=== PATIENT | male | born 1960 | race Caucasian/White ===

== ENCOUNTER 2025-05-08 22:27 | Inpatient (IN) | payer MEDICARE, OTHER, SELFPAY ==
[2025-05-08 18:42] VITALS: BP 179/110; BMI 19.8
[2025-05-08 19:33] LABS: Hematocrit 43.1 % (39.0-52.0); Hemoglobin 13.5 g/dL (13.0-18.0); Mean Corp Hgb Conc. 31.3 g/dL (33.0-37.0); Mean Corpuscular Volume 74.8 fL (80.0-94.0); Nucleated Red Blood Cells % 0 % (-); Platelet Count 318 10^3/uL (130-400); Red Cell Dist. Width 18.9 % (11.5-14.5)
[2025-05-08 19:38] LABS: INR 0.98; PT 13.3 Sec (11.4-14.6)
[2025-05-08 19:42] LABS: COVID-19 Antigen Negative (Negative)
[2025-05-08 19:48] LABS: ALT (SGPT) 24 U/L (0-50); AST (SGOT) 28 U/L (17-59); Albumin 4.0 g/dl (3.5-5.0); Alkaline Phosphatase 95 U/L (38-126); Blood Urea Nitrogen 10 mg/dl (9-20); Calcium 9.5 mg/dl (8.4-10.2); Carbon Dioxide 27 mmol/L (22-30); Chloride 105 mmol/L (98-107); Estimated Creatinine Clearance 80 ml/min; Glucose 117 mg/dl (70-99); Potassium 4.2 mmol/L (3.5-5.1); Sodium 141 mmol/L (135-145); Total Protein 6.7 g/dl (6.3-8.2); eGFR > 60.00
[2025-05-08] MEDS: ZITHROMAX 500 MG PO (19:58)
[2025-05-08] MEDS: NSS 1000 IV (20:09)
[2025-05-08] MEDS: DECADRON 10 MG IV (20:10)
--- NOTE | 2025-05-08 20:41 | ED.GENMED ---
History of Present Illness
<Gurdeep Hernandez MD - Last Filed: 05/08/25 20:43>
General
Chief Complaint: Cough
Time Seen by Provider: 05/08/25 19:17
<Roger Pimentel Jr., PA-C - Last Filed: 05/08/25 21:34>
General
Source: patient, ambulance crew and long-term
Exam Limitations: none
Nursing documentation reviewed up to this point in time: agreed with
History of Present Illness
History of Present Illness:
64-year-old male past ministry of COPD hypertension presenting to the emergency department today from nursing facility with concerns of cough shortness of breath dyspnea on exertion fever tachycardia over the past day or so. Typically is on 1 L
oxygen at baseline
Review of Systems
<Roger Pimentel Jr., PA-C - Last Filed: 05/08/25 21:34>
Review of Systems
Allergies reviewed?: Yes
All Other Systems: ROS reviewed and negative except as documented in HPI and ROS
Phy Exam
<Roger Pimentel Jr., PA-C - Last Filed: 05/08/25 21:34>
Physical Exam
Physical Exam:
GENERAL: Alert , in no apparent distress
EYE: pupils equal and reactive
NECK: Supple, no significant adenopathy.
ENT: o/p clr, mmm.
CARDIAC: Regular rate and rhythm .
Pulmonary
: Diffuse inspiratory and expiratory wheezing
ABDOMEN: Soft, without focal tenderness, no r/g, no cvat
NEUROLOGICAL: Alert and oriented, no focal neuro deficits
SKIN: Warm and dry, skin intact.
MUSCULOSKELETAL: No edema, well perfused.
PSYCH: Normal and appropriate interaction.
Course
<Gurdeep Hernandez MD - Last Filed: 05/08/25 20:43>
Orders/Labs/Results
Orders:
Orders
05/08/25 18:50
EKG [Electrocardiogram (*1)] Urgent
Reason for Study: Tachycardia
EKG- Treatment ONCE
05/08/25 19:03
COVID-19 Antigen Urgent
Source: Nasal Swab
Complete Blood Count/With Diff Urgent
Comprehensive Metabolic Panel Urgent
Lactic Acid Urgent
Influenza A+B Rapid Molecular Urgent
MITA Source: Nasal Swab
Specimen Description:
05/08/25 19:11
PT/INR [Prothrombin Time] Urgent
Blood Culture Urgent
MITA Source: Blood/Venous
Specimen Description:
Blood Culture Urgent
MITA Source: Blood/Venous
Specimen Description:
05/08/25 19:16
Chest [CR Chest - 2 Views ] Urgent
Comment:
Reason For Exam: cough fever
05/08/25 19:44
0.9% Sodium Chloride 1000 ml [Nss] 1,000 ml IV BOLUS
Azithromycin [Zithromax] 500 mg PO NOW STA
Dexamethasone Sod Phosphate [Decadron] 10 mg IV NOW STA
05/08/25 20:33
Acetaminophen [Tylenol] 1,000 mg PO NOW STA
CefTRIAXone [Rocephin] 2,000 mg IV NOW STA
Metoclopramide [Reglan] 10 mg IV NOW STA
05/08/25 20:47
Sterile Water [Sterile Water For Injection] 20 ml .ROUTE .STK-MED
Abnormal Lab Results
05/08/25
19:03
MCV 74.8 L fL
(80.0-94.0)
MCH 23.4 L pg
(27.0-31.0)
MCHC 31.3 L g/dL
(33.0-37.0)
RDW 18.9 H %
(11.5-14.5)
Abs Immat Gran (auto) 0.1 H 10^3/uL
(0-0.05)
Absolute Monos (auto) 1.0 H 10^3/uL
(0.1-0.6)
Immature Gran % 1.3 H %
(0-0.5)
Lymphocytes % 15.3 L %
(20.5-51.1)
Monocytes % 13.8 H %
(1.7-9.3)
Glucose 117 H mg/dl
(70-99)
05/08/25 19:03
05/08/25 19:03
Vital Signs
Initial and Last Documented VS:
Initial Vital Signs
Temp Pulse Resp BP Pulse Ox
100.7 F H 136 22 179/110 91
05/08/25 18:42 05/08/25 18:42 05/08/25 18:42 05/08/25 18:42 05/08/25 18:42
Last Documented Vital Signs
Temp Pulse Resp BP Pulse Ox
100.7 F H 117 13 105/82 96
05/08/25 18:42 05/08/25 21:00 05/08/25 21:00 05/08/25 21:00 05/08/25 21:00
<Roger Pimentel Jr., PA-C - Last Filed: 05/08/25 21:34>
Orders/Labs/Results
Orders:
Orders
05/08/25 18:50
EKG [Electrocardiogram (*1)] Urgent
Reason for Study: Tachycardia
EKG- Treatment ONCE
05/08/25 19:03
COVID-19 Antigen Urgent
Source: Nasal Swab
Complete Blood Count/With Diff Urgent
Comprehensive Metabolic Panel Urgent
Lactic Acid Urgent
Influenza A+B Rapid Molecular Urgent
MITA Source: Nasal Swab
Specimen Description:
05/08/25 19:11
PT/INR [Prothrombin Time] Urgent
Blood Culture Urgent
MITA Source: Blood/Venous
Specimen Description:
Blood Culture Urgent
MITA Source: Blood/Venous
Specimen Description:
05/08/25 19:16
Chest [CR Chest - 2 Views ] Urgent
Comment:
Reason For Exam: cough fever
05/08/25 19:44
0.9% Sodium Chloride 1000 ml [Nss] 1,000 ml IV BOLUS
Azithromycin [Zithromax] 500 mg PO NOW STA
Dexamethasone Sod Phosphate [Decadron] 10 mg IV NOW STA
05/08/25 20:33
Acetaminophen [Tylenol] 1,000 mg PO NOW STA
CefTRIAXone [Rocephin] 2,000 mg IV NOW STA
Metoclopramide [Reglan] 10 mg IV NOW STA
05/08/25 20:47
Sterile Water [Sterile Water For Injection] 20 ml .ROUTE .STK-MED
Abnormal Lab Results
05/08/25
19:03
MCV 74.8 L fL
(80.0-94.0)
MCH 23.4 L pg
(27.0-31.0)
MCHC 31.3 L g/dL
(33.0-37.0)
RDW 18.9 H %
(11.5-14.5)
Abs Immat Gran (auto) 0.1 H 10^3/uL
(0-0.05)
Absolute Monos (auto) 1.0 H 10^3/uL
(0.1-0.6)
Immature Gran % 1.3 H %
(0-0.5)
Lymphocytes % 15.3 L %
(20.5-51.1)
Monocytes % 13.8 H %
(1.7-9.3)
Glucose 117 H mg/dl
(70-99)
05/08/25 19:03
05/08/25 19:03
Vital Signs
Initial and Last Documented VS:
Initial Vital Signs
Temp Pulse Resp BP Pulse Ox
100.7 F H 136 22 179/110 91
05/08/25 18:42 05/08/25 18:42 05/08/25 18:42 05/08/25 18:42 05/08/25 18:42
Last Documented Vital Signs
Temp Pulse Resp BP Pulse Ox
100.7 F H 117 13 105/82 96
05/08/25 18:42 05/08/25 21:00 05/08/25 21:00 05/08/25 21:00 05/08/25 21:00
<Roger Pimentel Jr., PA-C - Last Filed: 05/08/25 21:34>
MDM/Problems Addressed
MDM/Problems Addressed:
64-year-old male presenting to the emergency department today with concerns of worsening cough for respiratory syndrome and fever. On arrival low-grade temperature tachycardic. Inspiratory and expiratory wheezing. Chest x-ray showed possible
pneumonia. Patient started on antibiotics otherwise will be admitted for further treatment and monitoring.
<Gurdeep Hernandez MD - Last Filed: 05/08/25 20:43>
*Pulse Oximetry
SaO2: 96
Oxygen Mode of Delivery: Room air
<Roger Pimentel Jr., PA-C - Last Filed: 05/08/25 21:34>
*Pulse Oximetry
Patient hypoxic: no (96)
*Critical Care Note
Total Time (30-74mins, 75-104mins- exclusive of procedures): Not Applicable
ED Attending Note
<Gurdeep Hernandez MD - Last Filed: 05/08/25 20:43>
ED Attending Note
Patient seen and examined by attending physician: Yes
I performed the substantive portion of visit, reviewed & personally made and approve the management plan that is documented in note by myself or ACE.: Yes
ED Attending Note:
Increased cough short of breath fever headache x 2 to 3 days. Feels it started after his flu shot.
Patient presents hypertensive tachycardic. Moderately tachypneic. Low-grade fever.
Some pursed lip breathing but able to speak. Distant breath sounds diffusely. Mild expiratory rhonchi and wheeze mostly with coughing. Gets fairly tachycardic and comfortable when he does cough.
Chest x-ray shows possible pneumonia right upper lobe. Low-grade fever. Was given steroids. Refuses nebulizers. He will do his own his inhalers however. I encouraged him to go ahead and take multiple puffs of his albuterol and his preventative
inhaler. Antibiotics started. Will be admitted to the medical service.
-
Portions of this chart may have been created with voice recognition software.� Occasional wrong word or��sound alike� substitutions may have occurred due to the inherent limitations of voice recognition software.
Discharge Plan
Departure
Patient Disposition: Admit
Date of Disposition: 05/08/25
Time of Disposition: 21:33
Admit to: Med/Surg
Admit to doctor: Bibi
Presentation/result/management discussed w/ accepting MD/DO: Hospitalist
Patient with high blood pressure during this ER visit?: No
Condition: Fair
Covid-19: Not Applicable
Discharge Problem:
COPD exacerbation, Pneumonia
Prescriptions:
No Action
losartan 50 mg Tablet
50 mg PO DAILY
atorvastatin 80 mg Tablet
80 mg PO HS
acetaminophen [Tylenol] 325 mg Tablet
650 mg PO Q4H PRN (Reason: pain)
trazodone 50 mg Tablet
50 mg PO HS
calcium 500 mg Tablet
500 mg PO DAILY
melatonin 3 mg Tablet
3 mg PO HS PRN (Reason: insomnia)
alendronate 35 mg Tablet
35 mg PO QWEEK
aspirin 81 mg Tablet
81 mg PO DAILY
albuterol 90 mcg/actuation Aerosol
108 mcg INHALATION 4-8XD PRN (Reason: SOB)
fluticasone propionate 50 mcg/actuation [place],Suspension
2 spray INTRANASAL DAILY
cholecalciferol (vitamin D3) [Vitamin D3] 25 mcg (1,000 unit) Tablet
25 mcg PO DAILY
cetirizine 10 mg Capsule
10 mg PO DAILY
roflumilast 500 mcg Tablet
500 mcg PO DAILY
Breztri Aerosphere 160-9-4.8 mcg/actuation Hfa Aerosol Inhaler
2 inh INHALATION QAM AND QPM
Referrals:
UNKNOWN - PT DOES,NOT KNOW [Family Provider]
Interventions
Interventions:
*Risk Screen - Suicide Last Done: 05/08/25 18:42
*General Assessment Last Done: 05/08/25 18:42
*Neglect/Abuse Screening Last Done: 05/08/25 18:42
*ED- Fall Risk Assessment Last Done: 05/08/25 18:42
*ED COVID-19 Vaccine History Last Done: 05/08/25 18:42
*ED Influenza Vaccine History Last Done: 05/08/25 18:42
ED- Pulmonary Assessment Last Done: 05/08/25 19:19
Discharge Date and Time
Print Language: CENTRAL AFRICAN
[2025-05-08] MEDS: TYLENOL 1000 MG PO (20:54)
[2025-05-08] MEDS: REGLAN 10 MG IV (20:54)
[2025-05-08] MEDS: ROCEPHIN 2000 MG IV (20:57)
[2025-05-08 21:00] VITALS: BP 105/82
[2025-05-08 22:00] VITALS: BP 116/88
--- NOTE | 2025-05-08 22:16 | HPS.HSE ---
Family Physician
-
Family Physician: NOT KNOW UNKNOWN - PT DOES
Chief Complaint
-
Cough
History of Present Illness
64-year-old male with past medical history significant for remote [place], hyperlipidemia, hypertension, COPD with advanced disease status post bronchial valve placement on right segmental branches who was recently admitted at an outside hospital with
respiratory failure and intubated x 5 days, discharged to rehab on March 10, now presenting from rehab with cough and shortness of breath.
Patient reported that symptoms began on Friday after he had received influenza vaccination. He said he usually does not cough but he started producing thick mucus cough with blood-tinged. Reports that he became severely short of breath. He also
reports of some chills. At the correction he was found to be hypoxic to 88% on room air. Was able to transfer to the emergency department.
In the emergency department he had a temp of 100.7, blood pressure was 116/88 with a pulse rate of 114 and was satting 96% on 2 L.
CBC was unremarkable. Electrolyte BUN/creatinine were normal. ECG showed a sinus tachycardia at rate of 122. COVID test and flu test were negative. Chest x-ray shows a right upper lobe opacity.
Medical History
Past Medical History
Past Medical History: Reports CAD, COPD (Advanced disease 1 L home O2), HTN and Hypercholesterolemia
Past Surgical History: Reports Other
Social History
Tobacco: Former Smoker
Alcohol: None
Drug: None
Personal: Single
Living: Snf
Employment: Disabled
Family History
Family History: Not pertinent
Allergies / Home Medications
Allergies reflects when Allergies were last updated in [facility].
Home Medications with original date entered in [facility]
Allergy/Medication List:
Allergies
Allergy/AdvReac Type Severity Reaction Status Date / Time
No Known Allergies Allergy Verified 05/08/25 18:49
Home Medications
acetaminophen 325 mg tablet (Tylenol) 650 mg PO Q4H PRN pain 05/08/25
albuterol 90 mcg/actuation aerosol inhaler 108 mcg inhalation 4-8XD PRN SOB 05/08/25
alendronate 35 mg tablet 35 mg PO QWEEK 05/08/25
aspirin 81 mg tablet 81 mg PO DAILY 05/08/25
atorvastatin 80 mg tablet 80 mg PO HS 05/08/25
budesonide 160 mcg-glycopyr 9 mcg-formot 4.8 mcg/actuation HFA inhaler (Breztri Aerosphere) 2 inh inhalation QAM AND QPM 05/08/25
calcium 500 mg tablet 500 mg PO DAILY 05/08/25
cetirizine 10 mg capsule 10 mg PO DAILY 05/08/25
cholecalciferol (vitamin D3) 25 mcg (1,000 unit) tablet (Vitamin D3) 25 mcg PO DAILY 05/08/25
fluticasone propionate 50 mcg/actuation nasal spray,suspension 2 spray intranasal DAILY 05/08/25
losartan 50 mg tablet 50 mg PO DAILY 05/08/25
melatonin 3 mg tablet 3 mg PO HS PRN insomnia 05/08/25
roflumilast 500 mcg tablet 500 mcg PO DAILY 05/08/25
trazodone 50 mg tablet 50 mg PO HS 05/08/25
Review of Systems
-
History Source: Patient
Constitutional: Reports No Symptoms
EENT: Reports No Symptoms
Respiratory: Reports Cough and Trouble Breathing
Cardiac: Reports No Symptoms
Abdomen/GI: Reports No Symptoms
: Reports No Symptoms
Musculoskeletal: Reports No Symptoms
Skin: Reports No Symptoms
Neurological: Reports No Symptoms
Endocrine: Reports No Symptoms
Hematologic/Lymphatic: Reports No Symptoms
Psych: Reports No Symptoms
Physical Exam
Vital Signs
Vital Signs
Temp Pulse Resp BP Pulse Ox
100.7 F H 114 26 116/88 96
05/08/25 18:42 05/08/25 22:00 05/08/25 22:00 05/08/25 22:00 05/08/25 22:00
Physical Exam
General: Respiratory Distress and Appears Chronically Ill
HEENT: NormoCephalic, Anicteric, Moist mucous membranes and PERRLA
Respiratory: Accessory Resp Muscle Use and Decreased Breath Sounds
Cardiac: S1/S2, Regular Rhythm and Tachycardia
Breast: Deferred by me
GI: Soft, Non Tender, Non Distended and Normal Bowel Sounds
Rectal: Deferred by Provider
Musculoskeletal: No Clubbing, No Cyanosis and No Edema
Skin: Warm
Neuro: AO x 3 and Nonfocal/grossly intact
Psych: Calm
Laboratory Results
-
05/08/25 19:03
05/08/25 19:03
Laboratory Results
PT 13.3 Sec (11.4-14.6) 05/08/25 19:11
INR 0.98 05/08/25 19:11
Lactic Acid 1.6 mmol/L (0.7-2.0) 05/08/25 19:03
Total Bilirubin 0.4 mg/dl (0.2-1.3) 05/08/25 19:03
AST 28 U/L (17-59) 05/08/25 19:03
ALT 24 U/L (0-50) 05/08/25 19:03
Alkaline Phosphatase 95 U/L (38-126) 05/08/25 19:03
Data Reviewed
-
Diagnostic Radiology: Image Personally Visualized and interpreted and Report Reviewed by me
Medical Tests (Nuc Med, Echo, EKG etc): Image Personally Visualized and interpreted
Lab Data: Labs Reviewed by me
Old Records: Reviewed
Impression/Plan
-
IMPRESSION:
64-year-old with past medical history significant for COPD status post bronchial valve procedure complicated by pneumothorax status post chest tube placement will use recently status post intubation for respiratory failure at an outside hospital
coming to the emergency department with shortness of breath cough fevers and a right upper lobe infiltrates. She had just received the influenza vaccine 3 days ago. And she has extensive work of breathing likely secondary to a for pulmonary
results. Patient states that he is pulmonary reserve is less than 20%. He is hemodynamically stable here. Satting 96% on 2L. Does not appear to be retaining CO2. Severe dyspnea with any activity.
PLAN:
Pneumonia with COPD exacerbation -
-Due to severity of underlying emphysema and increased work of breathing we will admit to IMU for now for close observation
-Blood cultures have been sent
-Sputum culture
-Urine Legionella and pneumococcal antigens
-IV ceftriaxone and azithromycin
-IV Solu-Medrol every 6 hours
-Continue nebs RTC and as needed
� Continue patient's Breztri or equivalent on formulary
-Continue patient's Roflumilast
-Supportive measures with oxygen and antitussives and antiemetics
-Pulmonary consultation
DVT prophylaxis�Lovenox subcu
CODE STATUS�full code
[2025-05-08 23:00] VITALS: BP 99/83
--- NOTE | 2025-05-08 23:15 | EDRN ---
Report received, patient is sleeping when observed, call navarro in reach, vss.
[2025-05-09] VITALS (27 sets, daily range): BP systolic 82–147; BP diastolic 66–108
[2025-05-09] MEDS: SOLU-MEDROL PF 40 MG IV ×4 (01:48→19:51)
--- NOTE | 2025-05-09 01:58 | EDRN ---
Went in to medicate patient, he's awake at this time, asked if i could get some of the old sheets from under him out, dry linen provided as well as a gown, otherwise resting comfortably at time time.
--- NOTE | 2025-05-09 03:11 | EDRN ---
Patient is resting comfortably at this time, VSS, call navarro is in reach will continue to monitor.
--- NOTE | 2025-05-09 05:15 | EDRN ---
Patient's BP is trending down, went from 94/71 down to 82/68 and a reading of 83/64, patient is sleeping at this time, informed Bethany leyva NP covering IMU about patient's blood pressure, orders for fluids to be put in on patient. Otherwise patient
stable at this time
[2025-05-09] MEDS: NSS 1000 IV (05:53)
[2025-05-09 06:25] LABS: Hematocrit 41.5 % (39.0-52.0); Hemoglobin 12.8 g/dL (13.0-18.0); Mean Corp Hgb Conc. 30.8 g/dL (33.0-37.0); Mean Corpuscular Volume 75.9 fL (80.0-94.0); Platelet Count 293 10^3/uL (130-400); Red Cell Dist. Width 18.6 % (11.5-14.5)
[2025-05-09 06:53] LABS: Blood Urea Nitrogen 11 mg/dl (9-20); Calcium 8.9 mg/dl (8.4-10.2); Carbon Dioxide 22 mmol/L (22-30); Chloride 110 mmol/L (98-107); Estimated Creatinine Clearance 91 ml/min; Glucose 160 mg/dl (70-99); Potassium 5.6 mmol/L (3.5-5.1); Sodium 141 mmol/L (135-145); eGFR > 60.00
--- NOTE | 2025-05-09 06:55 | EDRN ---
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
[2025-05-09] MEDS: COLACE PO ×3 (07:18→19:28)
[2025-05-09] MEDS: MUCINEX 600 MG PO ×2 (07:18→19:51)
[2025-05-09] MEDS: COZAAR 50 MG PO (07:18)
[2025-05-09] MEDS: ASPIR LOW (ENTERIC COATED) 81 MG PO (07:19)
[2025-05-09] MEDS: DUONEB 3 ML INH (07:46)
--- NOTE | 2025-05-09 07:54 | RESPNOTE ---
patient has own BREZTRI inhaler and PROAIR inhaler at bedside. pt will not allow inhalers out of his possession as he is worried they would get lost. attempted to explain to patient, inhaler would be returned after label generated but will not
allow. patient also state nebs make him nauseous, only takes inhalers at baseline. patient did agree to try neb but after 2 min of inhalation c/o nausea and neb was discontinued. RN Odilon aware of interaction. 98% on 2L, 1L O2 at baseline per
patient.
[2025-05-09] MEDS: DALIRESP 500 MCG PO (08:52)
--- NOTE | 2025-05-09 08:52 | CM ---
CM reviewed chart and met with pt bedside in ED. Pt has been at [facility] since February, he went there from a hospital in [place]. Prior to that he had been living with his stepson in [place]. [address], [place]
He is , he has 2 daughters, Kaykay lives in [place] cell [phone]. According to paperwork sent from [facility] Kaykay is POA. His other daughter lives in [place].
Pt states he is looking for an apartment in the area but also looking in to [facility], ? [facility].
Pt needs assistance with ADLs and personal care, he told me he was ambulating with walker but no longer needs it. [facility] paperwork has him listed as assist of 1.
He also told me he was placed on hospice from the hospital in [facility] hosp[facility] but said he did not like the meds they put him on, they just wanted to give him Morphine.
He uses O2 1L [place] at home, unsure of supplier. Currently on 2L [place] in the ED.
Pt's address in [facility] is in [place], pt states that is from 20 years ago. Pt's RN will ask Registration to see pt and update information.
PCP at [facility]: Dimitri Randolph
Pharmacy: [facility] at [facility], [facility]
Pt plans to return to [facility] to complete rehab and then either get an apartment or got to [place] [facility].
--- NOTE | 2025-05-09 09:50 | CON.PUL ---
Consultation
Consultation Request
Date/Time Consultation Requested: 05/09/2025-8 AM
Date/Time Consultation Performed: 05/09/2025-8:30 AM
Requesting Provider: Hospitalist
Performing Provider: Dr. Valdes
Reason for Consultation: COPD exacerbation
Medical History
-
Chief Complaint: Shortness of breath
History of Present Illness:
64-year-old former smoking male with end-stage COPD, hyperlipidemia, hypertension, and CAD who states he had the flu shot and subsequently became ill. He was recently admitted to an outside hospital at the [facility] with respiratory failure intubated for
4 to 5 days was discharged to rehab. He presented with coughing and shortness of breath after his flu shot noted to have significant COPD exacerbation and pulmonary consulted for end-stage COPD with acute exacerbation 05/09/2025. He states that he
is feeling improved from last evening but still has significant shortness of breath with minimal exertion. He denies any chest pain, chest tightness and has some hemoptysis and discolored mucus production. He does not complain of any pleurisy,
abdominal pain, nausea, vomiting, leg swelling or focal weakness.
Past Medical History
Past Medical History: None (End-stage COPD. Chronic hypoxemia-oxygen dependent. CAD. Hypertension. Hyperlipidemia.)
Social History
Tobacco: Former Smoker (25-orrh-mtde quit 12 years ago-started age 9)
Alcohol: None
Drug: None
Personal: Single
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
Occupational Exposures: No known asbestos exposure
Environmental Exposures: No known tuberculosis exposure
Family History
Family History: Reviewed & Not Pertinent
Allergies / Home Medications
Allergies
Allergy/AdvReac Type Severity Reaction Status Date / Time
No Known Allergies Allergy Verified 05/08/25 18:49
Home Medications
�Medication �Instructions �Recorded �Confirmed �Last Taken �Type
acetaminophen 325 mg tablet 650 mg PO Q4HPRN PRN mild pain 05/08/25 05/09/25 Unknown History
(Tylenol)
alendronate 35 mg tablet 35 mg PO MO 05/08/25 05/09/25 Unknown History
aspirin 81 mg tablet 81 mg PO DAILY 05/08/25 05/09/25 Unknown History
atorvastatin 80 mg tablet 80 mg PO HS 05/08/25 05/09/25 Unknown History
budesonide 160 mcg-glycopyr 9 2 inh inhalation R BID 05/08/25 05/09/25 Unknown History
mcg-formot 4.8 mcg/actuation HFA
inhaler (Breztri Aerosphere)
cholecalciferol (vitamin D3) 25 25 mcg PO DAILY 05/08/25 05/09/25 Unknown History
mcg (1,000 unit) tablet (Vitamin
D3)
fluticasone propionate 50 2 spray intranasal QPM 05/08/25 05/09/25 Unknown History
mcg/actuation nasal
spray,suspension
losartan 50 mg tablet 50 mg PO DAILY 05/08/25 05/09/25 Unknown History
melatonin 3 mg tablet 3 mg PO HS insomnia 05/08/25 05/09/25 Unknown History
roflumilast 500 mcg tablet 500 mcg PO DAILY 05/08/25 05/09/25 Unknown History
trazodone 50 mg tablet 50 mg PO HS 05/08/25 05/09/25 Unknown History
albuterol sulfate 2.5 mg/3 mL 2.5 mg inhalation R Q4HPRN PRN sob 05/09/25 05/09/25 Unknown History
(0.083 %) solution for nebulization
albuterol sulfate 90 mcg/actuation 2 inh inhalation R Q2HPRN PRN sob 05/09/25 05/09/25 Unknown History
aerosol inhaler
bisacodyl 10 mg rectal suppository 10 mg PA DAILYPRN PRN if no bm 05/09/25 05/09/25 Unknown History
(Dulcolax (bisacodyl)) aftr mom
calcium carbonate 500 mg PO DAILY 05/09/25 05/09/25 Unknown History
cetirizine 10 mg tablet (Zyrtec) 10 mg PO DAILY 05/09/25 05/09/25 Unknown History
magnesium hydroxide 400 mg/5 mL 2,400 mg PO DAILYPRN PRN if no bm 05/09/25 05/09/25 Unknown History
oral suspension (Milk of Magnesia) by 3rd day
ondansetron HCl 4 mg tablet 4 mg PO Q8HPRN PRN nausea 05/09/25 05/09/25 Unknown History
polyethylene glycol 3350 17 gram 17 g PO [id number] PRN constipation 05/09/25 05/09/25 Unknown History
oral powder packet (Miralax)
sennosides 8.6 mg tablet (senna) 8.6 mg PO BIDPRN PRN constipation 05/09/25 05/09/25 Unknown History
sodium chloride 0.65 % nasal spray 1 spray intranasal Q4HPRN PRN 05/09/25 05/09/25 Unknown History
aerosol dryness
sodium phosphates 19 gram-7 118 ml PA DAILYPRN PRN if no bm 05/09/25 05/09/25 Unknown History
gram/118 mL enema (Fleet Enema) aftr dulcolax
Review of Systems
-
Unable to Obtain full review of systems at this time due to: Other (Per HPI)
Vitals / Labs / Diagnostic Testing
Vital Signs
Temp Pulse Resp BP Pulse Ox
97.8 F 84 20 120/92 97
05/09/25 05:53 05/09/25 08:15 05/09/25 07:48 05/09/25 08:00 05/09/25 08:15
Lab Data
05/09/25 05:47
05/09/25 05:47
Laboratory Results
05/08/25
19:11
PT 13.3
INR 0.98
Microbiology
05/09/25 02:00 Urine Streptococcus pneumoniae Antigen (M - Final
Negative for Streptococcus pneumoniae antigen.
A negative result does not exclude infection with
Streptococcus pneumoniae. Clinical correlation is
recommended.
05/09/25 02:00 Urine Legionella Urinary Antigen - Final
Negative for Legionella pneumophila Serogroup 1 antigen.
A negative result does not rule out the possiblity of
Legionella infection due to other serogroups or species of
Legionella. Clinical correlation is recommended.
05/08/25 19:03 Nasal Swab Influenza Types A & B (RALPH) - Final
Negative for Influenza A & B, NAAT
Negative results must be combined with clinical observations
and patient history.
Nucleic Acid Amplification test (NAAT)performed on the
[employer] platform.
Diagnostic Testing:
Physical Exam
-
Exam:
well-nourished and well-developed in no apparent distress
HEENT-atraumatic, normocephalic
Neck-supple, no JVD, no bruit
Heart-regular rate and rhythm-no murmurs, rubs or gallops
Chest with diminished breath sounds, barrel chested, hyperinflation, prolonged expiratory time, expiratory wheezes and no crackles
Abdomen-soft, nontender, nondistended, no hepatosplenomegaly
Extremities-no cyanosis, clubbing, edema and good peripheral pulses
Integument-intact, no rashes, lesions or ecchymosis
Neurology-alert and oriented, nonfocal motor and sensory exam
Assessment
-
64-year-old former smoking male with end-stage COPD, hyperlipidemia, hypertension, and CAD who states he had the flu shot and subsequently became ill. He was recently admitted to an outside hospital at the [facility] with respiratory failure intubated for
4 to 5 days was discharged to rehab. He presented with coughing and shortness of breath after his flu shot noted to have significant COPD exacerbation and pulmonary consulted for end-stage COPD with acute exacerbation 05/09/2025.
End-stage COPD with acute exacerbation
Chronic hypoxemia on home oxygen-1 L
Recent hospitalization-COPD exacerbation requiring intubation-on ventilator for 4 days-[facility] [place]
Pneumonia
Leukopenia
Mild microcytic anemia-hemoglobin 12.8, MCV 76
Hyperkalemia
Hyperglycemia
Conditions present prior to admission:
End-stage COPD-oxygen dependent, 1 L, taken care of at the [facility]-on Breztri (does not like Trelegy), nebulizers make him ill, history of [place] valve placement, palliative care, not ready for hospice
CAD
Hypertension
Hyperlipidemia
Plan
Acute decompensation of his end-stage COPD likely related to bacterial
Patient recently hospitalized on the ventilator for 4 days at the [facility] in [place]
Patient on chronic oxygen 1 L and is status post [place] valve placement in [place] '[address]', follows at the [facility]
Supplemental oxygen as needed
High flow oxygen if needed
Patient full code-noninvasive ventilation if needed
Follow-up ABG or VBG if needed
Mucolytics
Nebulizers-states they cause headaches and make him feel ill
Continue Breztri twice daily-he likes this better than Trelegy
Methylprednisolone 40 mg IV every 6 hours
Mucinex
Daliresp
Check cultures
Sputum culture pending
Ceftriaxone and azithromycin
Follow radiographically
Follow leukopenia
Monitor hemoglobin
Transfuse if needed
Consider iron studies with microcytic anemia
Replace and correct electrolytes
Monitor blood sugar
Insulin supplementation as needed
DVT prophylaxis-on Lovenox
Nutrition
Early mobilization
Outpatient pulmonary follow-up at the [facility]-consider checking alpha 1 antitrypsin and replacement if necessary, consider low-dose prednisone, azithromycin thrice weekly, Ohtuvayre nebulizers, Biologics, transplantation, etc.
Diagnostic data:
Chest x-ray 05/08/2025-moderate opacification medial right upper lobe, severe emphysematous changes
Data Reviewed
-
EKG: Report reviewed by me
Radiology: Image personally visualized and interpreted and Report reviewed by me
Medical Tests (Nuc Med, Echo etc): Report reviewed by me
Labs: Labs reviewed by me
Old Records: Reviewed
Total Time Spent with Patient (in minutes): 55
--- NOTE | 2025-05-09 14:44 | W.PN.HOSP.TC ---
Today's Communication/Plan
-
Assessment / Plan
Assessment / Plan
NAD
Scleral Anicteric
MMM
No JVD
Diminished breath sounds throughout without
RRR, S1/S2
Soft, NT, ND, BS+
Warm, Dry
AAOx3
Calm
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
Wean oxygen as tolerated
Steroids
Antibiotics
Mucolytic's
Daliresp
Breathing treatments
Sputum culture pending
Hyperlipidemia
Continue statin
Osteoporosis
Continue bone mineralization supplement
Hypertension
Continue antihypertensive
Anticipated Discharge: > 48 hours
Subjective/Interval History
-
Date of Service: May 09, 2025
Seen and examined. Continues to feel short of breath. Productive cough.
Fevers chills yesterday. Nothing thus far
Objective Data
-
Labs:
Laboratory Results
05/09/25
05:47
WBC 4.6 L
Hgb 12.8 L
Hct 41.5
Plt Count 293
Sodium 141
Potassium 5.6 H D
Chloride 110 H
Carbon Dioxide 22
BUN 11
Creatinine 0.7
Glucose 160 H
Calcium 8.9
Vital Signs:
Vital Signs
Temp Pulse Resp BP Pulse Ox
98.5 F 87 20 123/89 96
05/09/25 13:19 05/09/25 14:15 05/09/25 14:15 05/09/25 14:00 05/09/25 14:15
I&O
05/08/25 05/09/25 05/10/25
06:59 06:59 06:59
Output Total 500 / 500 825 / 825
Balance -500 / -500 -825 / -825
--- NOTE | 2025-05-09 16:33 | PTCARENOTE ---
report given to imu rn
--- NOTE | 2025-05-09 18:13 | PTCARENOTE ---
Received into 3344 , IMU monitors placed - SR/ST 90, BP 140/102 RR26- very anxious, very dyspneic. Stiff/ rigid for periods of time waiting for his breathing to become better? Diminished bs t.o, 97% on 2l nc. Oriented to room, call navarro and bed.
Multiple personal devices and wires in reach and plugged in. Called kitchen - tray is already ordered. PT own MDIs in his hands - will not surrender at this time.
[2025-05-09] MEDS: LOVENOX 40 MG SC (18:33)
--- NOTE | 2025-05-09 18:40 | PTCARENOTE ---
Bertramer now, BP 139/95. HR 80.
[2025-05-09] MEDS: STERILE WATER FOR INJECTION 10 ML IV (19:51)
[2025-05-09] MEDS: ROCEPHIN 1000 MG IV (19:51)
[2025-05-09] MEDS: NON-FORMULARY ITEM 2 UNIT INH (20:23)
[2025-05-09] MEDS: ZITHROMAX INFUSION 250 IV (20:26)
[2025-05-09] MEDS: ROBITUSSIN DM 10 ML PO (21:45)
[2025-05-09] MEDS: DESYREL 50 MG PO (21:45)
[2025-05-09] MEDS: LIPITOR 80 MG PO (21:45)
[2025-05-09] MEDS: MELATONIN 3 MG PO (21:46)
[2025-05-10] VITALS (14 sets, daily range): BP systolic 87–118; BP diastolic 68–87; PULSE 98; O2SAT 95–97
[2025-05-10] MEDS: SOLU-MEDROL PF 40 MG IV ×4 (02:04→20:17)
[2025-05-10] MEDS: ROBITUSSIN DM 10 ML PO ×2 (02:04→22:37)
[2025-05-10 06:54] LABS: Blood Urea Nitrogen 12 mg/dl (9-20); Calcium 8.3 mg/dl (8.4-10.2); Carbon Dioxide 26 mmol/L (22-30); Chloride 109 mmol/L (98-107); Estimated Creatinine Clearance 107 ml/min; Glucose 142 mg/dl (70-99); Potassium 4.7 mmol/L (3.5-5.1); Sodium 139 mmol/L (135-145); eGFR > 60.00
[2025-05-10] MEDS: DALIRESP 500 MCG PO (08:00)
[2025-05-10] MEDS: MUCINEX 600 MG PO ×2 (08:00→20:29)
[2025-05-10] MEDS: COLACE 100 MG PO (08:00)
[2025-05-10] MEDS: ASPIR LOW (ENTERIC COATED) 81 MG PO (08:00)
[2025-05-10] MEDS: COZAAR 50 MG PO (08:01)
--- NOTE | 2025-05-10 09:26 | PTCARENOTE ---
Patient in bed verbalizing feelings of shortness of breath at rest and with activity in bed. Pulse ox 96% on 2 liters nassal cannula, respiratory rate 16. Patient talked about fear of getting out of bed today due to shortness of breath. RN discussed
options for activity and provided therapeutic communication. PT to evaluate.
--- NOTE | 2025-05-10 09:48 | W.PN.PUL.V3 ---
Today's Communication / Plan
-
Nebulizers as tolerated
Antibiotics
No change in methylprednisolone
Assessment
-
64-year-old former smoking male with end-stage COPD, hyperlipidemia, hypertension, and CAD who states he had the flu shot and subsequently became ill. He was recently admitted to an outside hospital at the [facility] with respiratory failure intubated for
4 to 5 days was discharged to rehab. He presented with coughing and shortness of breath after his flu shot noted to have significant COPD exacerbation and pulmonary consulted for end-stage COPD with acute exacerbation 05/09/2025.
End-stage COPD with acute exacerbation
Chronic hypoxemia on home oxygen-1 L
Recent hospitalization-COPD exacerbation requiring intubation-on ventilator for 4 days-[facility] [place]
Pneumonia
Leukopenia
Mild microcytic anemia-hemoglobin 12.8, MCV 76
Hyperkalemia
Hyperglycemia
Conditions present prior to admission:
End-stage COPD-oxygen dependent, 1 L, taken care of at the [facility]-on Breztri (does not like Trelegy), nebulizers make him ill, history of [place] valve placement, palliative care, not ready for hospice
CAD
Hypertension
Hyperlipidemia
Plan
Acute decompensation of his end-stage COPD likely related to bacterial
Patient recently hospitalized on the ventilator for 4 days at the [facility] in [place]
Patient on chronic oxygen 1 L and is status post [place] valve placement in [place] 'helped 3%', follows at the [facility]
Supplemental oxygen as needed
High flow oxygen if needed
Patient full code-noninvasive ventilation if needed
Follow-up ABG or VBG if needed
Mucolytics
Nebulizers-states they cause headaches and make him feel ill
Continue Breztri twice daily-he likes this better than Trelegy
Methylprednisolone 40 mg IV every 6 hours-no change
Mucinex
Daliresp
Check cultures
Sputum culture-few WBCs, mixed organisms, culture in progress
MRSA screen pending
Urine streptococcal antigen and Legionella antigen negative
Ceftriaxone and azithromycin
Follow radiographically
Follow leukopenia
Monitor hemoglobin
Transfuse if needed
Consider iron studies with microcytic anemia
Replace and correct electrolytes
Monitor blood sugar
Insulin supplementation as needed
DVT prophylaxis-on Lovenox
Nutrition
Early mobilization
Outpatient pulmonary follow-up at the [facility]-consider checking alpha 1 antitrypsin and replacement if necessary, consider low-dose prednisone, azithromycin thrice weekly, Ohtuvayre nebulizers, Biologics, transplantation, etc.
Diagnostic data:
Chest x-ray 05/08/2025-moderate opacification medial right upper lobe, severe emphysematous changes
Subjective Data
-
Date of Service:
Date of Service: May 10, 2025
Chief Complaint: Pulmonary Follow Up and Dyspnea Follow Up
Subjective:
Still significant shortness of breath with minimal exertion, some cough with minimal productive sputum, no chest pain or abdominal pain,
Review of Systems
General: Other (Per HPI)
Objective Data
Data Reviewed
Vital Signs / I&O:
Vital Signs
Temp Pulse Resp BP Pulse Ox
98.0 F 69 16 113/80 96
05/10/25 03:03 05/10/25 08:01 05/10/25 08:00 05/10/25 08:01 05/10/25 08:32
Intake and Output
05/09/25 05/10/25 05/11/25
06:59 06:59 06:59
Intake Total 480 / 480 120 / 120
Output Total 500 / 500 1425 / 1425
Balance -500 / -500 -945 / -945 120 / 120
SaO2: 96
Nasal Cannula flow liters per minute: 2
Physical Exam
General: Respiratory Distress (n) and Comfortable
HEENT: Normocephalic, Anicteric and Moist Mucous Membranes
Cardiovascular: Regular Rhythm
Respiratory: Clear (Diminished breath sounds and prolonged expiratory time), Wheeze (Forced expiratory), Crackles (n), Rhonchi, Non-Labored Respirations, Accessory Resp Muscle Use (n) and Stridor (n)
GI: Soft, Non Distended and Non Tender
Neurology: Awake, Alert and No Motor Deficits
Skin: Warm, Good Color, Cyanosis (n), Jaundice and Rash (n)
Labs/Micro/Reports
Lab Data
05/09/25 05:47
05/10/25 06:05
Microbiology
05/08/25 19:11 Blood/Venous Blood Culture - Preliminary
No Growth in 24 hours- Final report to follow
05/08/25 19:11 Blood/Venous Blood Culture - Preliminary
No Growth in 24 hours- Final report to follow
05/09/25 02:00 Sputum Gram Stain - Preliminary
05/09/25 02:00 Urine Streptococcus pneumoniae Antigen (M - Final
Negative for Streptococcus pneumoniae antigen.
A negative result does not exclude infection with
Streptococcus pneumoniae. Clinical correlation is
recommended.
05/09/25 02:00 Urine Legionella Urinary Antigen - Final
Negative for Legionella pneumophila Serogroup 1 antigen.
A negative result does not rule out the possiblity of
Legionella infection due to other serogroups or species of
Legionella. Clinical correlation is recommended.
05/08/25 19:03 Nasal Swab Influenza Types A & B (RALPH) - Final
Negative for Influenza A & B, NAAT
Negative results must be combined with clinical observations
and patient history.
Nucleic Acid Amplification test (NAAT)performed on the
[employer] platform.
[2025-05-10] MEDS: NON-FORMULARY ITEM 2 UNIT INH ×2 (11:26→19:27)
[2025-05-10] MEDS: ZITHROMAX 500 MG PO (12:12)
--- NOTE | 2025-05-10 14:01 | W.PN.HOSP.TC ---
Today's Communication/Plan
-
Assessment / Plan
Assessment / Plan
NAD
Scleral Anicteric
MMM
No JVD
Diminished breath sounds throughout. Wheezing
RRR, S1/S2
Soft, NT, ND, BS+
Warm, Dry
AAOx3
Calm
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
Wean oxygen as tolerated
Steroids
Antibiotics
Mucolytic's
Daliresp
Breathing treatments
Sputum culture pending
Hyperlipidemia
Continue statin
Osteoporosis
Continue bone mineralization supplement
Hypertension
Continue antihypertensive
Anticipated Discharge: > 48 hours
Subjective/Interval History
-
Date of Service: May 10, 2025
Seen and examined. No new complaints. No acute overnight events.
Objective Data
-
Labs:
Laboratory Results
05/10/25
06:05
Sodium 139
Potassium 4.7
Chloride 109 H
Carbon Dioxide 26
BUN 12
Creatinine 0.6 L
Glucose 142 H
Calcium 8.3 L
Vital Signs:
Vital Signs
Temp Pulse Resp BP Pulse Ox
98.5 F 74 18 105/73 96
05/10/25 11:52 05/10/25 10:00 05/10/25 10:00 05/10/25 10:00 05/10/25 10:00
I&O
05/09/25 05/10/25 05/11/25
06:59 06:59 06:59
Intake Total 480 / 480 120 / 120
Output Total 500 / 500 1425 / 1425 400 / 400
Balance -500 / -500 -945 / -945 -280 / -280
--- NOTE | 2025-05-10 14:36 | PTCARENOTE ---
Patient has a very strong cough, scant amount of thick, blood tinged sputum at this time in cup. Notified Dr. Wakefield. Pulse ox 96% on 2 liters, respiratory rate 22. Patient is in bed denying pain when asked.
--- NOTE | 2025-05-10 16:19 | CM ---
F/U: Patient is still being monitored re: his breathing, continuing nebulizer treatments, and Abx Referral sent to [facility] to follow. PLAN: Return to [facility].
[2025-05-10] MEDS: LOVENOX 40 MG SC (17:43)
[2025-05-10] MEDS: STERILE WATER FOR INJECTION 10 ML IV (20:17)
[2025-05-10] MEDS: ROCEPHIN 1000 MG IV (20:18)
[2025-05-10] MEDS: COLACE PO (20:29)
[2025-05-10] MEDS: LIPITOR 80 MG PO (21:11)
[2025-05-10] MEDS: DESYREL 50 MG PO (21:11)
[2025-05-10] MEDS: BENADRYL 25 MG PO (21:11)
[2025-05-10] MEDS: MELATONIN 3 MG PO (21:13)
[2025-05-11] VITALS (12 sets, daily range): BP systolic 89–124; BP diastolic 62–91; BMI 18.9
[2025-05-11] MEDS: ROBITUSSIN DM 10 ML PO ×3 (03:28→21:09)
[2025-05-11] MEDS: SOLU-MEDROL PF 40 MG IV ×4 (03:28→21:07)
[2025-05-11 04:24] LABS: Hematocrit 39.1 % (39.0-52.0); Hemoglobin 11.7 g/dL (13.0-18.0); Mean Corp Hgb Conc. 29.9 g/dL (33.0-37.0); Mean Corpuscular Volume 77.3 fL (80.0-94.0); Platelet Count 322 10^3/uL (130-400); Red Cell Dist. Width 18.9 % (11.5-14.5)
[2025-05-11 04:45] LABS: Blood Urea Nitrogen 14 mg/dl (9-20); Calcium 8.8 mg/dl (8.4-10.2); Carbon Dioxide 26 mmol/L (22-30); Chloride 106 mmol/L (98-107); Estimated Creatinine Clearance 102 ml/min; Glucose 158 mg/dl (70-99); Potassium 4.3 mmol/L (3.5-5.1); Sodium 137 mmol/L (135-145); eGFR > 60.00
[2025-05-11] MEDS: COLACE PO ×3 (08:01→21:06)
[2025-05-11] MEDS: MUCINEX 600 MG PO ×2 (08:01→21:06)
[2025-05-11] MEDS: ASPIR LOW (ENTERIC COATED) 81 MG PO (08:01)
[2025-05-11] MEDS: COZAAR 50 MG PO (08:01)
[2025-05-11] MEDS: ZITHROMAX 500 MG PO (08:01)
[2025-05-11] MEDS: DALIRESP 500 MCG PO (08:01)
[2025-05-11] MEDS: NON-FORMULARY ITEM 2 UNIT INH ×2 (08:20→19:54)
--- NOTE | 2025-05-11 09:45 | W.PN.PUL.V3 ---
Today's Communication / Plan
-
Stable for transfer to telemetry
Increase activity
No change in methylprednisolone-consider changed to prednisone in the next 24 hours
Finite course of antibiotics-eventually changed to azithromycin 500 mg Epkpfu-Tcxzlcbdh-Skrgeh-indefinitely
Nebulizers if tolerated-does not like nebs
Inhalers continue
Assessment
-
64-year-old former smoking male with end-stage COPD, hyperlipidemia, hypertension, and CAD who states he had the flu shot and subsequently became ill. He was recently admitted to an outside hospital at the [facility] with respiratory failure intubated for
4 to 5 days was discharged to rehab. He presented with coughing and shortness of breath after his flu shot noted to have significant COPD exacerbation and pulmonary consulted for end-stage COPD with acute exacerbation 05/09/2025.
End-stage COPD with acute exacerbation
Chronic hypoxemia on home oxygen-1 L
Recent hospitalization-COPD exacerbation requiring intubation-on ventilator for 4 days-[facility] in [place]
Pneumonia
Leukopenia
Mild microcytic anemia-hemoglobin 12.8, MCV 76
Hyperkalemia
Hyperglycemia
Rash-etiology and culprit unclear
Conditions present prior to admission:
End-stage COPD-oxygen dependent, 1 L, taken care of at the [facility]-on Breztri (does not like Trelegy), nebulizers make him ill, history of [place] valve placement, palliative care, not ready for hospice
CAD
Hypertension
Hyperlipidemia
Plan
Acute decompensation of his end-stage COPD likely related to bacterial
Patient recently hospitalized on the ventilator for 4 days at the [facility] in [place]
Patient on chronic oxygen 1 L and is status post [place] valve placement in [place] '[facility]', follows at the [facility]
Supplemental oxygen as needed-attempt to wean to outpatient levels
High flow oxygen if needed-has not needed
Mucolytics
Nebulizers-states they cause headaches and make him feel ill
Continue Breztri twice daily-he likes this better than Trelegy
Methylprednisolone 40 mg IV every 6 hours-no change
Mucinex
Daliresp continues
Add Claritin for nasal congestion-states nasal sprays do not work for him
Check cultures
Sputum culture-few WBCs, mixed organisms, culture in progress
MRSA screen negative
Urine streptococcal antigen and Legionella antigen negative
Ceftriaxone and azithromycin-finite course-eventually changed to azithromycin 500 mg Phsrvy-Vjdajnfbp-Vidmke
Follow radiographically
Follow leukopenia-now normal WBC
Monitor hemoglobin-currently 11.7
Transfuse if needed
Consider iron studies with microcytic anemia
Replace and correct electrolytes
Monitor blood sugar
Insulin supplementation as needed
DVT prophylaxis-on Lovenox
Nutrition
Early mobilization
Stable for transfer to telemetry-increase activity
Outpatient pulmonary follow-up at the [facility]-consider checking alpha 1 antitrypsin and replacement if necessary, consider low-dose prednisone, azithromycin thrice weekly, Ohtuvayre nebulizers, Biologics such as Dupixent, pulmonary rehabilitation,
transplantation, etc.
Diagnostic data:
Chest x-ray 05/08/2025-moderate opacification medial right upper lobe, severe emphysematous changes
Subjective Data
-
Date of Service:
Date of Service: May 11, 2025
Chief Complaint: Pulmonary Follow Up and Dyspnea Follow Up
Subjective:
Feels better, less short of breath, had a rash from something-he thinks it may be the tomato soup, no chest pain, hemoptysis or abdominal pain
Review of Systems
General: Other (Per HPI)
Objective Data
Data Reviewed
Vital Signs / I&O:
Vital Signs
Temp Pulse Resp BP Pulse Ox
98.0 F 82 25 124/87 95
05/11/25 03:40 05/11/25 08:21 05/11/25 08:21 05/11/25 08:01 05/11/25 08:21
Intake and Output
05/10/25 05/11/25 05/12/25
06:59 06:59 06:59
Intake Total 480 / 480 1320 / 1320
Output Total 1425 / 1425 1400 / 1400
Balance -945 / -945 -80 / -80
SaO2: 95
Nasal Cannula flow liters per minute: 1
Physical Exam
General: Respiratory Distress (n) and Comfortable
HEENT: Normocephalic, Anicteric and Moist Mucous Membranes
Cardiovascular: Regular Rhythm
Respiratory: Clear (Diminished breath sounds and prolonged expiratory time), Wheeze (Forced expiratory), Crackles (n), Rhonchi, Non-Labored Respirations, Accessory Resp Muscle Use (n) and Stridor (n)
GI: Soft, Non Distended and Non Tender
Neurology: Awake, Alert and No Motor Deficits
Skin: Warm, Good Color, Cyanosis (n), Jaundice and Rash (n)
Labs/Micro/Reports
Lab Data
05/11/25 04:02
05/11/25 04:02
Microbiology
05/08/25 19:11 Blood/Venous Blood Culture - Preliminary
No Growth in 48 hours- Final report to follow
05/08/25 19:11 Blood/Venous Blood Culture - Preliminary
No Growth in 48 hours- Final report to follow
05/09/25 07:58 Nose MRSA Screen - Final
No Methicillin Resistant Staphylococcus aureus isolated.
05/09/25 02:00 Sputum Respiratory Culture - Preliminary
05/09/25 02:00 Sputum Gram Stain - Preliminary
05/09/25 02:00 Urine Streptococcus pneumoniae Antigen (M - Final
Negative for Streptococcus pneumoniae antigen.
A negative result does not exclude infection with
Streptococcus pneumoniae. Clinical correlation is
recommended.
05/09/25 02:00 Urine Legionella Urinary Antigen - Final
Negative for Legionella pneumophila Serogroup 1 antigen.
A negative result does not rule out the possiblity of
Legionella infection due to other serogroups or species of
Legionella. Clinical correlation is recommended.
05/08/25 19:03 Nasal Swab Influenza Types A & B (RALPH) - Final
Negative for Influenza A & B, NAAT
Negative results must be combined with clinical observations
and patient history.
Nucleic Acid Amplification test (NAAT)performed on the
[employer] platform.
--- NOTE | 2025-05-11 09:57 | PTCARENOTE ---
Assumed care of patient at beginning of this shift from previous RN; cannot verify accuracy of vital signs prior to 0700.
--- NOTE | 2025-05-11 11:21 | PTCARENOTE ---
Received patient at beginning of shift with O2 1.5L in use; able to wean to patient's baseline of 1L n/c with POx 97%. Patient continues with occasional harsh cough; denies current SOB but +NICE. Lungs coarse with exp wheeze. Seen by Dr Valdes this
morning. See worklist for full assessment and vital signs.
[2025-05-11] MEDS: CLARITIN 10 MG PO (12:03)
--- NOTE | 2025-05-11 13:15 | PN.CDI ---
CDI
- -
CDI:
Physician Documentation Request
Admit Date: 05/08/25 22:27
Dear Doctor Ashu,
Patient admitted with acute COPD exacerbation.
Please review the following and provide your response in the progress notes.
Clinical Indicators:
Height: 5' 8'
Weight: 124 lb 6 oz
BMI: 18.9
Please provide an associated diagnosis related to the abnormal BMI, such as:
Underweight
Cachectic
Anorexia
Other
BMI < or = to 19
Underweight
Weight Loss
Cachectic
Anorexia
Use of terms such as suspected, likely, concern for, or probable (associated with a specific diagnosis that is being evaluated, monitored, or treated as if it exists) are acceptable and can be coded in the inpatient setting, when documented at the
time of discharge.
Thank you,
Adela DAMON,RN,CCDS
CDI Specialist
Available via [employer] text
Please use your independent medical judgment in providing your response.
--- NOTE | 2025-05-11 13:32 | PN.CDI ---
CDI
- -
CDI:
Physician Documentation Request
Admit Date: 05/08/25 22:27
Dear Doctor Ashu,
Patient admitted with acute COPD exacerbation.
ED note, 'Typically is on 1 L oxygen at baseline.'
05/11 Pulmonary note, 'Chronic hypoxemia on home oxygen-1 L.'
Please provide in your note the diagnosis associated with the patient's home oxygen use:
Chronic hypoxic respiratory failure
Hypoxia only
Other
Use of terms such as suspected, likely, concern for, or probable (associated with a specific diagnosis that is being evaluated, monitored, or treated as if it exists) are acceptable and can be coded in the inpatient setting, when documented at the
time of discharge.
Thank you,
Adela DAMON,RN,CCDS
CDI Specialist
Available via tiger text
Please use your independent medical judgment in providing your response.
--- NOTE | 2025-05-11 14:01 | W.PN.UPDATE ---
Update Note
Progress Note Update
MRSA screen-negative.
Sputum culture-few WBCs, mixed organisms, few presumptive MRSA.
Patient responding to current therapy-less short of breath, less oxygen requirements, no temperatures
Continue current antibiotics-reviewed with infectious disease pharmacy-eventually if feel contributing then could try linezolid orally and monitor blood pressure if receiving metoclopramide (interaction with linezolid)
Recommend holding off on antibiotic changes for now
--- NOTE | 2025-05-11 14:31 | W.PN.HOSP.TC ---
Addendum entered and electronically signed by Kenyon Wakefield MD 05/11/25 15:05:
chronic hypoxemic respiratory failure
pulmonary cachexia
Original Note:
Today's Communication/Plan
-
Assessment / Plan
Assessment / Plan
NAD
Scleral Anicteric
MMM
No JVD
Diminished breath sounds throughout. Wheezing
RRR, S1/S2
Soft, NT, ND, BS+
Warm, Dry
AAOx3
Calm
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
- Resend sputum culture however not being covered with improving clinically
Wean oxygen as tolerated
Steroids
Antibiotics with Rocephin azithromycin
Mucolytic's
Daliresp
Breathing treatments
Sputum culture pending
Hyperlipidemia
Continue statin
Osteoporosis
Continue bone mineralization supplement
Hypertension
Continue antihypertensive
Anticipated Discharge: 24 - 48 hours
Subjective/Interval History
-
Date of Service: May 11, 2025
Seen and examined. No new complaints. No acute overnight events.
Objective Data
-
Labs:
Laboratory Results
05/11/25
04:02
WBC 10.7
Hgb 11.7 L
Hct 39.1
Plt Count 322
Sodium 137
Potassium 4.3
Chloride 106
Carbon Dioxide 26
BUN 14
Creatinine 0.6 L
Glucose 158 H
Calcium 8.8
Vital Signs:
Vital Signs
Temp Pulse Resp BP Pulse Ox
97.9 F 83 22 105/68 94
05/11/25 11:25 05/11/25 12:00 05/11/25 12:00 05/11/25 10:00 05/11/25 12:00
I&O
05/10/25 05/11/25 05/12/25
06:59 06:59 06:59
Intake Total 480 / 480 1320 / 1320
Output Total 1425 / 1425 1400 / 1400
Balance -945 / -945 -80 / -80
[2025-05-11] MEDS: LOVENOX 40 MG SC (17:59)
[2025-05-11] MEDS: MYLICON 80 MG PO (18:14)
[2025-05-11] MEDS: LIPITOR 80 MG PO (21:06)
[2025-05-11] MEDS: DESYREL 50 MG PO (21:06)
[2025-05-11] MEDS: ROCEPHIN 1000 MG IV (21:06)
[2025-05-11] MEDS: MELATONIN 3 MG PO (21:06)
[2025-05-11] MEDS: STERILE WATER FOR INJECTION 10 ML IV (21:07)
[2025-05-12] VITALS (15 sets, daily range): BP systolic 99–152; BP diastolic 71–102; PULSE 91; O2SAT 97
[2025-05-12] MEDS: TYLENOL 650 MG PO ×2 (03:26→12:10)
[2025-05-12] MEDS: ROBITUSSIN DM 10 ML PO (03:26)
[2025-05-12] MEDS: SOLU-MEDROL PF 40 MG IV ×4 (03:27→19:59)
--- NOTE | 2025-05-12 04:04 | PTCARENOTE ---
Assumed care of patient from dayshift RN. Pt drowsy, but easily arousable and ox3. Afib on the monitor. SpO2 94% on 4L NC. Patient wore the bipap for 5 hours overnight. Patient resting in bed asleep with call navarro in reach.
--- NOTE | 2025-05-12 04:07 | PTCARENOTE ---
Assumed care of patient from jude RN. Patient aaox3. Pt c/o 12/04 headache he described as aching. Patient requested PRN Tylenol (see MAR). Sinus sathish on the monitor, hr 50-60s. SpO2 96% on 1L NC. Pt resting in bed with call navarro in reach,
--- NOTE | 2025-05-12 04:20 | PTCARENOTE ---
Assumed care of patient from jude RN. Patient aaox3. Pt c/o 01/04 headache he described as aching. Patient requested PRN Tylenol (see MAR). Sinus sathish on the monitor, hr 50-60s. SpO2 96% on 1L NC. Pt resting in bed with call navarro in reach,
[2025-05-12] MEDS: ZITHROMAX 500 MG PO (08:08)
[2025-05-12] MEDS: ASPIR LOW (ENTERIC COATED) 81 MG PO (08:08)
[2025-05-12] MEDS: DALIRESP 500 MCG PO (08:09)
[2025-05-12] MEDS: COLACE PO ×2 (08:09→19:57)
[2025-05-12] MEDS: CLARITIN 10 MG PO (08:09)
[2025-05-12] MEDS: COZAAR 50 MG PO (08:09)
[2025-05-12] MEDS: MUCINEX 600 MG PO (08:09)
[2025-05-12] MEDS: NON-FORMULARY ITEM 1 UNIT INH ×2 (08:21→21:12)
--- NOTE | 2025-05-12 09:55 | W.PN.PUL.V3 ---
Today's Communication / Plan
-
Continue antibiotics
Recheck sputum culture-if continues to show MRSA and continues to have thick sticky secretions then we will consider linezolid
No change in methylprednisolone
Intensify mucolytic's
Patient stable for transfer to telemetry
Assessment
-
64-year-old former smoking male with end-stage COPD, hyperlipidemia, hypertension, and CAD who states he had the flu shot and subsequently became ill. He was recently admitted to an outside [facility] with respiratory failure intubated for
4 to 5 days was discharged to rehab. He presented with coughing and shortness of breath after his flu shot noted to have significant COPD exacerbation and pulmonary consulted for end-stage COPD with acute exacerbation 05/09/2025.
End-stage COPD with acute exacerbation
Chronic hypoxemia on home oxygen-1 L
Recent hospitalization-COPD exacerbation requiring intubation-on ventilator for 4 days-[facility] in [place]
Pneumonia
Leukopenia
Mild microcytic anemia-hemoglobin 12.8, MCV 76
Hyperkalemia
Hyperglycemia
Rash-etiology and culprit unclear
Conditions present prior to admission:
End-stage COPD-oxygen dependent, 1 L taken care of at the [facility]-on Breztri (does not like Trelegy), nebulizers make him ill, history of [place] valve placement, palliative care, not ready for hospice
Reportedly alpha 1 antitrypsin 'carrier'-not on replacement therapy, transplant evaluation at the [facility] being contemplated
CAD
Hypertension
Hyperlipidemia
Plan
Acute decompensation of his end-stage COPD likely related to bacterial
Patient recently hospitalized on the ventilator for 4 days at the [facility] in [place]
Patient on chronic oxygen 1 L and is status post [place] valve placement in [place] 'helped 3%', follows at the [facility]
Supplemental oxygen as needed-attempt to wean to outpatient levels
Mucolytics
Nebulizers-states they cause headaches and make him feel ill
Continue Breztri twice daily-he likes this better than Trelegy
Methylprednisolone 40 mg IV every 6 hours-no change
Mucinex
Daliresp continues
Add Claritin for nasal congestion-states nasal sprays do not work for him
Cultures reviewed
MRSA screen-negative.
Sputum culture-few WBCs, mixed organisms, few presumptive MRSA.
Patient responding to current therapy-less short of breath, less oxygen requirements, no temperatures-still thick sticky secretions
Continue current antibiotics-reviewed with infectious disease pharmacy-eventually if feel contributing then could try linezolid orally and monitor blood pressure if receiving metoclopramide (interaction with linezolid)
Recommend holding off on antibiotic changes for now
Recheck sputum culture-if continues to grow MRSA and continues to have significant thick secretions then would change to linezolid
Urine streptococcal antigen and Legionella antigen negative
Ceftriaxone and azithromycin-finite course-eventually changed to azithromycin 500 mg Qedlot-[id number]-Ugelex
Follow radiographically
Follow leukopenia-now normal WBC
Monitor hemoglobin-currently 11.7
Transfuse if needed
Consider iron studies with microcytic anemia
Replace and correct electrolytes
Monitor blood sugar
Insulin supplementation as needed
DVT prophylaxis-on Lovenox
Nutrition
Early mobilization
Stable for transfer to telemetry-increase activity
Outpatient pulmonary follow-up at the [facility]-consider checking alpha 1 antitrypsin and replacement if necessary, consider low-dose prednisone, azithromycin thrice weekly, Ohtuvayre nebulizers, Biologics such as Dupixent, pulmonary rehabilitation,
transplantation, etc.
Diagnostic data:
Chest x-ray 05/08/2025-moderate opacification medial right upper lobe, severe emphysematous changes
Subjective Data
-
Date of Service:
Date of Service: May 12, 2025
Chief Complaint: Pulmonary Follow Up and Dyspnea Follow Up
Subjective:
Continues to complain of some shortness of breath with minimal exertion, has thick sticky secretions, still feels like he has chest congestion, no chest pain, abdominal pain or lower extremity swelling
Review of Systems
General: Other (Per HPI)
Objective Data
Data Reviewed
Vital Signs / I&O:
Vital Signs
Temp Pulse Resp BP Pulse Ox
98.3 F 80 16 114/85 96
05/12/25 08:13 05/12/25 08:21 05/12/25 08:21 05/12/25 08:00 05/12/25 08:21
Intake and Output
05/11/25 05/12/25 05/13/25
06:59 06:59 06:59
Intake Total 1320 / 1320 480 / 480
Output Total 1400 / 1400 1325 / 1325
Balance -80 / -80 -845 / -845
SaO2: 96
Nasal Cannula flow liters per minute: 1
Physical Exam
General: Respiratory Distress (n) and Comfortable
HEENT: Normocephalic, Anicteric and Moist Mucous Membranes
Cardiovascular: Regular Rhythm
Respiratory: Clear (Diminished breath sounds and prolonged expiratory time), Wheeze (Forced expiratory), Crackles (n), Rhonchi, Non-Labored Respirations, Accessory Resp Muscle Use (n) and Stridor (n)
GI: Soft, Non Distended and Non Tender
Neurology: Awake, Alert and No Motor Deficits
Skin: Warm, Good Color, Cyanosis (n), Jaundice and Rash (n)
Labs/Micro/Reports
Lab Data
05/11/25 04:02
05/11/25 04:02
Microbiology
05/09/25 02:00 Sputum Respiratory Culture - Final
Staph aureus MRSA
05/09/25 02:00 Sputum Gram Stain - Final
05/08/25 19:11 Blood/Venous Blood Culture - Preliminary
No Growth in 72 hours- Final report to follow
05/08/25 19:11 Blood/Venous Blood Culture - Preliminary
No Growth in 72 hours- Final report to follow
05/09/25 07:58 Nose MRSA Screen - Final
No Methicillin Resistant Staphylococcus aureus isolated.
05/09/25 02:00 Urine Streptococcus pneumoniae Antigen (M - Final
Negative for Streptococcus pneumoniae antigen.
A negative result does not exclude infection with
Streptococcus pneumoniae. Clinical correlation is
recommended.
05/09/25 02:00 Urine Legionella Urinary Antigen - Final
Negative for Legionella pneumophila Serogroup 1 antigen.
A negative result does not rule out the possiblity of
Legionella infection due to other serogroups or species of
Legionella. Clinical correlation is recommended.
--- NOTE | 2025-05-12 11:48 | PTCARENOTE ---
Assumed care of patient at beginning of this shift from previous RN with O2 1l n/c in use. POx 95-96%. Patient c/o continued cough that he states causes him SOB. He is bringing up thick [place] sputum. Dr Wakefield up to see patient; increased mucinex to
1200mg; sputum culture ordered, provided patient new sterile cup for collection. Patient now c/o gas bloating feeling; requesting 'gas x.' TT sent to Dr Wakefield. See worklist for full assessment and vital signs.
[2025-05-12] MEDS: MYLICON 80 MG PO ×2 (12:47→20:14)
[2025-05-12] MEDS: OCEAN, SALINE MIST NASAL ×4 (12:47→22:02)
--- NOTE | 2025-05-12 14:11 | CM ---
F/U: Patient is continuing to recheck cultures that are still showing MRSA and may start/ switch Abx, according to Pulmonary. PLAN: Patient is from [facility] and will return when ready.
--- NOTE | 2025-05-12 14:33 | W.PN.HOSP.TC ---
Today's Communication/Plan
-
Assessment / Plan
Assessment / Plan
NAD
Scleral Anicteric
MMM
No JVD
Diminished breath sounds throughout. Wheezing
RRR, S1/S2
Soft, NT, ND, BS+
Warm, Dry
AAOx3
Calm
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
- Resend sputum culture however not being covered with improving clinically
Wean oxygen as tolerated
Steroids
Antibiotics with Rocephin azithromycin
Mucolytic's
Daliresp
Breathing treatments
Sputum culture pending
Hypertonic saline nebs
[place]
Consider vest therapy, will discuss this with pulmonary
Hyperlipidemia
Continue statin
Osteoporosis
Continue bone mineralization supplement
Hypertension
Continue antihypertensive
Anticipated Discharge: 24 - 48 hours
Subjective/Interval History
-
Date of Service: May 12, 2025
Seen and examined. No new complaints. No acute overnight events.
Objective Data
-
Vital Signs:
Vital Signs
Temp Pulse Resp BP Pulse Ox
97.9 F 66 12 121/79 96
05/12/25 12:45 05/12/25 14:00 05/12/25 14:00 05/12/25 14:00 05/12/25 12:49
I&O
05/11/25 05/12/25 05/13/25
06:59 06:59 06:59
Intake Total 1320 / 1320 480 / 480
Output Total 1400 / 1400 1325 / 1325
Balance -80 / -80 -845 / -845
[2025-05-12] MEDS: LOVENOX 40 MG SC (17:11)
--- NOTE | 2025-05-12 18:58 | PTCARENOTE ---
Patient transferred to 2140 at approximately 18:30 with all belongings. PCT took patient via wheelchair.
[2025-05-12] MEDS: MUCINEX 1200 MG PO (19:58)
[2025-05-12] MEDS: ROCEPHIN 1000 MG IV (19:58)
[2025-05-12] MEDS: STERILE WATER FOR INJECTION 10 ML IV (19:58)
[2025-05-12] MEDS: LIPITOR 80 MG PO (21:59)
[2025-05-12] MEDS: DESYREL 50 MG PO (21:59)
[2025-05-12] MEDS: MELATONIN 3 MG PO (22:00)
[2025-05-13] MEDS: ROBITUSSIN DM 10 ML PO ×4 (00:25→21:36)
[2025-05-13] MEDS: SOLU-MEDROL PF 40 MG IV ×4 (01:48→19:51)
[2025-05-13 03:05] VITALS: BP 128/79
[2025-05-13] MEDS: NON-FORMULARY ITEM 1 UNIT INH ×2 (07:31→20:26)
[2025-05-13] MEDS: DALIRESP 500 MCG PO (07:51)
[2025-05-13] MEDS: ASPIR LOW (ENTERIC COATED) 81 MG PO (07:51)
[2025-05-13] MEDS: ZITHROMAX 500 MG PO (07:51)
[2025-05-13] MEDS: MUCINEX 1200 MG PO ×2 (07:51→19:50)
[2025-05-13] MEDS: CLARITIN 10 MG PO (07:51)
[2025-05-13] MEDS: COZAAR 50 MG PO (07:53)
[2025-05-13 07:57] VITALS: BP 148/85
[2025-05-13] MEDS: COLACE PO ×2 (07:58→19:50)
[2025-05-13] MEDS: OCEAN, SALINE MIST 2 SPRAYS NASAL (07:59)
[2025-05-13] MEDS: MYLICON 80 MG PO ×2 (08:21→20:00)
--- NOTE | 2025-05-13 09:26 | W.PN.PUL.V3 ---
Today's Communication / Plan
-
Recheck sputum.
Finite course of antibiotics.
No change in steroids.
Consider antibiotic change if MRSA grows again
Assessment
-
64-year-old former smoking male with end-stage COPD, hyperlipidemia, hypertension, and CAD who states he had the flu shot and subsequently became ill. He was recently admitted to an outside hospital [facility] with respiratory failure intubated for
4 to 5 days was discharged to rehab. He presented with coughing and shortness of breath after his flu shot noted to have significant COPD exacerbation and pulmonary consulted for end-stage COPD with acute exacerbation 05/09/2025.
End-stage COPD with acute exacerbation
Chronic hypoxemia on home oxygen-1 L
Recent hospitalization-COPD exacerbation requiring intubation-on ventilator for 4 days-[facility] in [place]
Pneumonia
Leukopenia
Mild microcytic anemia-hemoglobin 12.8, MCV 76
Hyperkalemia
Hyperglycemia
Rash-etiology and culprit unclear
Conditions present prior to admission:
End-stage COPD-oxygen dependent, 1 L taken care of at the [facility]-on Breztri (does not like Trelegy), nebulizers make him ill, history of [place] valve placement, palliative care, not ready for hospice
Reportedly alpha 1 antitrypsin 'carrier'-not on replacement therapy, transplant evaluation at the [facility] being contemplated
CAD
Hypertension
Hyperlipidemia
Plan
Acute decompensation of his end-stage COPD likely related to bacterial infection
Patient recently hospitalized on the ventilator for 4 days at the [facility] in [place]
Patient on chronic oxygen 1 L and is status post [place] valve placement in [place] 'helped 3%', follows at the [facility]
Supplemental oxygen as needed-attempt to wean to outpatient levels-currently on 1 L
Mucolytics
Nebulizers-states they cause headaches and make him feel ill
Continue Breztri twice daily-he likes this better than Trelegy
Methylprednisolone 40 mg IV every 6 hours-no change-hopefully can start to reduce in the next 24 hours
Mucinex
Daliresp continues
Claritin for nasal congestion-states nasal sprays do not work for him
Saline nasal sprays.
Saline nebulizers as needed -states he is 'willing to try'
Cultures reviewed
MRSA screen-negative.
Sputum culture-few WBCs, mixed organisms, few presumptive MRSA.
Patient responding to current therapy-less short of breath, less oxygen requirements, no temperatures-still thick sticky secretions
Continue current antibiotics-reviewed with infectious disease pharmacy-eventually if feel contributing then could try linezolid orally and monitor blood pressure if receiving metoclopramide (interaction with linezolid)
Recommend holding off on antibiotic changes for now
Recheck sputum culture-if continues to grow MRSA and continues to have significant thick secretions then would change to linezolid
Urine streptococcal antigen and Legionella antigen negative
Ceftriaxone and azithromycin-finite course-eventually changed to azithromycin 500 mg Tlgdfy-Qudmolndn-Sqthmv
Follow radiographically
Follow leukopenia-now normal WBC
Monitor hemoglobin-currently 11.7
Transfuse if needed
Consider iron studies with microcytic anemia
Replace and correct electrolytes
Monitor blood sugar
Insulin supplementation as needed
DVT prophylaxis-on Lovenox
Nutrition
Early mobilization
Outpatient pulmonary follow-up at the [facility]-consider checking alpha 1 antitrypsin and replacement if necessary-reportedly checked and he is a 'carrier' and not on replacement therapy, consider low-dose prednisone, azithromycin thrice weekly, Ohtuvayre
nebulizers, Biologics such as Dupixent, pulmonary rehabilitation, transplantation, etc.
Diagnostic data:
Chest x-ray 05/08/2025-moderate opacification medial right upper lobe, severe emphysematous changes
Subjective Data
-
Date of Service:
Date of Service: May 13, 2025
Chief Complaint: Pulmonary Follow Up and Dyspnea Follow Up
Subjective:
Overall, feels a little better, still a significant shortness of breath with minimal exertion, thick, tenacious secretions, no chest pain or abdominal pain
Review of Systems
General: Other (per HPI)
Objective Data
Data Reviewed
Vital Signs / I&O:
Vital Signs
Temp Pulse Resp BP Pulse Ox
98.1 F 89 18 148/85 96
05/13/25 07:57 05/13/25 07:57 05/13/25 07:57 05/13/25 07:57 05/13/25 07:57
Intake and Output
05/12/25 05/13/25 05/14/25
06:59 06:59 06:59
Intake Total 480 / 480 720 / 720
Output Total 1325 / 1325 1450 / 1450
Balance -845 / -845 -730 / -730
SaO2: 96
Nasal Cannula flow liters per minute: 1
Physical Exam
General: Respiratory Distress (n) and Comfortable
HEENT: Normocephalic, Anicteric and Moist Mucous Membranes
Cardiovascular: Regular Rhythm
Respiratory: Clear (Diminished breath sounds and prolonged expiratory time), Wheeze (Forced expiratory), Crackles (n), Rhonchi, Non-Labored Respirations, Accessory Resp Muscle Use (n) and Stridor (n)
GI: Soft, Non Distended and Non Tender
Neurology: Awake, Alert and No Motor Deficits
Skin: Warm, Good Color, Cyanosis (n), Jaundice and Rash (n)
Labs/Micro/Reports
Lab Data
05/11/25 04:02
05/11/25 04:02
Microbiology
05/13/25 06:30 Sputum Gram Stain - Preliminary
05/08/25 19:11 Blood/Venous Blood Culture - Preliminary
No Growth in 4 days- Final report to follow
05/08/25 19:11 Blood/Venous Blood Culture - Preliminary
No Growth in 4 days- Final report to follow
05/09/25 02:00 Sputum Respiratory Culture - Final
Staph aureus MRSA
05/09/25 02:00 Sputum Gram Stain - Final
05/09/25 07:58 Nose MRSA Screen - Final
No Methicillin Resistant Staphylococcus aureus isolated.
[2025-05-13 11:30] VITALS: BP 130/78
[2025-05-13] MEDS: OCEAN, SALINE MIST NASAL ×3 (12:23→21:47)
--- NOTE | 2025-05-13 12:26 | W.PN.HOSP.TC ---
Today's Communication/Plan
-
Assessment / Plan
Assessment / Plan
NAD
Scleral Anicteric
MMM
No JVD
Diminished breath sounds throughout. Wheezing
RRR, S1/S2
Soft, NT, ND, BS+
Warm, Dry
AAOx3
Calm
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
- Resend sputum culture however not being covered with improving clinically
Wean oxygen as tolerated
Steroids
Antibiotics with Rocephin azithromycin
Mucolytic's
Daliresp
Breathing treatments
Repeat sputum culture pending as ordered by pulmonary
Hypertonic saline nebs
[place]
Consider vest therapy, will discuss this with pulmonary
Hyperlipidemia
Continue statin
Osteoporosis
Continue bone mineralization supplement
Hypertension
Continue antihypertensive
Anticipated Discharge: 24 - 48 hours
Subjective/Interval History
-
Date of Service: May 13, 2025
Seen and examined. No new complaints. No acute overnight events.
Objective Data
-
Vital Signs:
Vital Signs
Temp Pulse Resp BP Pulse Ox
98.0 F 70 18 130/78 98
05/13/25 11:30 05/13/25 11:30 05/13/25 11:30 05/13/25 11:30 05/13/25 11:30
I&O
05/12/25 05/13/25 05/14/25
06:59 06:59 06:59
Intake Total 480 / 480 720 / 720
Output Total 1325 / 1325 1450 / 1450
Balance -845 / -845 -730 / -730
--- NOTE | 2025-05-13 13:40 | CM ---
Addendum entered by Jossie Kirkpatrick RN 05/13/25 16:15:
IMM reviewed.
Original Note:
Reviewed the chart notes. CM continues to be available to patient/family and is monitoring medical plan for needs at discharge.
Plan: Discharge back to [facility] when medically stable.
Call report to: [phone]
Fax report to: [phone]
[2025-05-13] MEDS: SODIUM CHLORIDE 3% FOR INHALATION 1 VIAL INH (14:48)
[2025-05-13 15:19] VITALS: BP 164/94
[2025-05-13] MEDS: LOVENOX SC ×2 (17:14→17:20)
[2025-05-13] MEDS: TYLENOL 650 MG PO (17:16)
[2025-05-13 19:27] VITALS: BP 127/87
[2025-05-13] MEDS: ROCEPHIN 1000 MG IV (19:50)
[2025-05-13] MEDS: STERILE WATER FOR INJECTION 10 ML IV (19:50)
[2025-05-13] MEDS: NON-FORMULARY ITEM INH (20:00)
[2025-05-13] MEDS: LIPITOR 80 MG PO (21:36)
[2025-05-13] MEDS: DESYREL 50 MG PO (21:36)
[2025-05-13] MEDS: MELATONIN 3 MG PO (21:36)
[2025-05-13 22:46] VITALS: BP 146/90
[2025-05-14] MEDS: SOLU-MEDROL PF 40 MG IV ×4 (02:27→20:13)
[2025-05-14 02:30] VITALS: BP 106/65
[2025-05-14] MEDS: ROBITUSSIN DM 10 ML PO ×3 (05:29→21:40)
[2025-05-14 06:53] VITALS: BP 129/90
[2025-05-14] MEDS: NON-FORMULARY ITEM 2 UNIT INH (08:19)
[2025-05-14] MEDS: MUCINEX 1200 MG PO ×2 (08:43→20:13)
[2025-05-14] MEDS: CLARITIN 10 MG PO (08:43)
[2025-05-14] MEDS: COZAAR 50 MG PO (08:43)
[2025-05-14] MEDS: OCEAN, SALINE MIST NASAL ×4 (08:43→21:43)
[2025-05-14] MEDS: ASPIR LOW (ENTERIC COATED) 81 MG PO (08:43)
[2025-05-14] MEDS: DALIRESP 500 MCG PO (08:43)
[2025-05-14] MEDS: COLACE PO ×2 (08:44→20:13)
[2025-05-14] MEDS: ZITHROMAX 500 MG PO (08:44)
--- NOTE | 2025-05-14 08:47 | W.PN.HOSP.TC ---
Today's Communication/Plan
-
See plan
Assessment / Plan
Assessment / Plan
Physical Exam
NAD
Normocephalic
MMM
Diminished breath sounds throughout. Wheezing
RRR, S1/S2
Soft, NT, ND, BS+
Warm, Dry
AAOx3
Calm
Assessment/Plan
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
Chronic hypoxemia on home oxygen-1 L
Recent hospitalization-COPD exacerbation requiring intubation-on ventilator for 4 days-[facility] [place]
Pneumonia
End-stage COPD-oxygen dependent, 1 L taken care of at the [facility]-on Breztri (does not like Trelegy), nebulizers make him ill, history of [place] valve placement, palliative care, not ready for hospice
Patient is reportedly alpha 1 antitrypsin 'carrier'-not on replacement therapy, transplant evaluation at the [facility] being contemplated
Wean oxygen as tolerated -- currently on 1 L oxygen
Change dose of Methylprednisolone 40 mg IV every 6 hours to 40 mg IV BID
Antibiotics: completed course of daily Rocephin and Azithromycin, now stop Rocephin, change Azithromycin to 500 mg M/W/ (this may be a chronic dose going forward, will check with pulmonary)
Continue Breztri (he likes this better than Trelegy)
Mucolytic's
Daliresp
Claritin and saline nasal sprays for nasal congestion
Patient declined nebulizers saying that they have made him sick in the past
Repeat sputum culture pending as ordered by pulmonary
Hypertonic saline nebs
[place]
Consider vest therapy, will discuss this with pulmonary
VBG in the morning
Hyperlipidemia
Continue statin
Osteoporosis
Continue bone mineralization supplement
Hypertension
Continue antihypertensive
History of CAD
-Continue Aspirin and statin
Leukopenia
Mild microcytic anemia
Hyperkalemia
-Resolved
Hyperglycemia
-Currently in the acceptable range
Rash-etiology and culprit unclear
DVT PPx: Lovenox
Anticipated Discharge: > 48 hours
Subjective/Interval History
-
Date of Service: May 14, 2025
Patient was seen and examined. He was doing okay and denied any new symptoms or complaints.
Objective Data
-
Vital Signs:
Vital Signs
Temp Pulse Resp BP Pulse Ox
97.5 F 89 18 129/90 96
05/14/25 06:53 05/14/25 08:20 05/14/25 08:20 05/14/25 06:53 05/14/25 08:20
I&O
05/13/25 05/14/25 05/15/25
06:59 06:59 06:59
Intake Total 720 / 720 1860 / 1860
Output Total 1450 / 1450 1000 / 1000
Balance -730 / -730 860 / 860
[2025-05-14] MEDS: MYLICON 80 MG PO ×3 (08:57→21:41)
[2025-05-14 11:41] VITALS: BP 137/87
[2025-05-14 12:09] LABS: Hematocrit 42.9 % (39.0-52.0); Hemoglobin 13.1 g/dL (13.0-18.0); Mean Corp Hgb Conc. 30.5 g/dL (33.0-37.0); Mean Corpuscular Volume 78.3 fL (80.0-94.0); Platelet Count 435 10^3/uL (130-400); Red Cell Dist. Width 18.7 % (11.5-14.5)
[2025-05-14 12:16] LABS: ALT (SGPT) 23 U/L (0-50); AST (SGOT) 17 U/L (17-59); Albumin 3.5 g/dl (3.5-5.0); Alkaline Phosphatase 52 U/L (38-126); Blood Urea Nitrogen 15 mg/dl (9-20); Calcium 9.4 mg/dl (8.4-10.2); Carbon Dioxide 32 mmol/L (22-30); Chloride 102 mmol/L (98-107); Estimated Creatinine Clearance 102 ml/min; Glucose 152 mg/dl (70-99); Magnesium 2.3 mg/dl (1.6-2.3); Potassium 4.5 mmol/L (3.5-5.1); Sodium 138 mmol/L (135-145); Total Protein 5.8 g/dl (6.3-8.2); eGFR > 60.00
[2025-05-14] MEDS: TYLENOL 650 MG PO (13:48)
--- NOTE | 2025-05-14 14:08 | W.PN.PUL3 ---
Today's Communication / Plan
-
- Lower steroids to 40 mg IV BID
- D/c Rocephin
- Change Azithromycin to 500 mg //
- VBG and Procalcitonin in AM
- Declines nebulized medications and nightly BIPAP support.
Assessment
-
64-year-old former smoking male with end-stage COPD, hyperlipidemia, hypertension, and CAD who states he had the flu shot and subsequently became ill. He was recently admitted to an [facility] with respiratory failure intubated for
4 to 5 days was discharged to rehab. He presented with coughing and shortness of breath after his flu shot noted to have significant COPD exacerbation and pulmonary consulted for end-stage COPD with acute exacerbation 05/09/2025.
End-stage COPD with acute exacerbation
Chronic hypoxemia on home oxygen-1 L
Recent hospitalization-COPD exacerbation requiring intubation-on ventilator for 4 days-[facility] [place]
Pneumonia
Leukopenia
Mild microcytic anemia-hemoglobin 12.8, MCV 76
Hyperkalemia
Hyperglycemia
Rash-etiology and culprit unclear
Conditions present prior to admission:
End-stage COPD-oxygen dependent, 1 L taken care of at [facility]-on [facility] (does not like Trelegy), nebulizers make him ill, history of [place] valve placement, palliative care, not ready for hospice
Reportedly alpha 1 antitrypsin 'carrier'-not on replacement therapy, transplant evaluation at the [facility] being contemplated
CAD
Hypertension
Hyperlipidemia
Plan
Acute decompensation of his end-stage COPD likely related to respiratory infection
Patient recently hospitalized on the ventilator for 4 days at [facility] [place]
Patient on chronic oxygen 1 L and is status post [place] valve placement in [place] 'helped 3%', follows at [facility]
Supplemental oxygen as needed-attempt to wean to outpatient levels-currently on 1 L
Mucolytics
Nebulizers-states they cause headaches and make him feel ill. Declines nebulized delivery of medications.
Continue Breztri twice daily-he likes this better than Trelegy
Methylprednisolone 40 mg IV every 6 hours-change to 40 mg IV BID
Mucinex
Daliresp continues
Claritin for nasal congestion-states nasal sprays do not work for him
Saline nasal sprays.
Saline nebulizers as needed -states he is 'willing to try'
D/c Rocephin, change Azithromycin to 500 mg //
Check VBG in AM. Nightly BIPAP offered, patient declines
Cultures reviewed
MRSA screen-negative.
Sputum culture-usual juan
Patient responding to current therapy-less short of breath, less oxygen requirements, no temperatures
Repeat sputum cultures usual juan.
Urine streptococcal antigen and Legionella antigen negative
Ceftriaxone and azithromycin-completed course-changed to azithromycin 500 mg [id number]
Follow radiographically
Follow leukopenia-now normal WBC
Monitor hemoglobin-currently 11.7
Transfuse if needed
Consider iron studies with microcytic anemia
Replace and correct electrolytes
Monitor blood sugar
Insulin supplementation as needed
DVT prophylaxis-on Lovenox
Nutrition
Early mobilization
Outpatient pulmonary follow-up at the [facility]-consider checking alpha 1 antitrypsin and replacement if necessary-reportedly checked and he is a 'carrier' and not on replacement therapy, consider low-dose prednisone, azithromycin thrice weekly, Ohtuvayre
nebulizers, Biologics such as Dupixent, pulmonary rehabilitation, transplantation, etc.
Diagnostic data:
Chest x-ray 05/08/2025-moderate opacification medial right upper lobe, severe emphysematous changes
Subjective Data
-
Date of Service:
Date of Service: May 14, 2025
Chief Complaint: Pulmonary Follow Up and Dyspnea Follow Up
Subjective:
Comfortabky lying in bed
Review of Systems
Genitourinary: Other (No new symptoms reported )
Objective Data
Data Reviewed
Vital Signs / I&O / Oxygen:
Vital Signs
Temp Pulse Resp BP Pulse Ox
97.6 F 88 20 137/87 96
05/14/25 11:41 05/14/25 11:41 05/14/25 11:41 05/14/25 11:41 05/14/25 11:41
Intake and Output
05/13/25 05/14/25 05/15/25
06:59 06:59 06:59
Intake Total 720 / 720 1860 / 1860
Output Total 1450 / 1450 1000 / 1000 200 / 200
Balance -730 / -730 860 / 860 -200 / -200
SaO2 96
Nasal Cannula flow liters per 1
minute
Physical Exam
General: Respiratory Distress (n) and Comfortable
HEENT: Normocephalic, Anicteric and Moist Mucous Membranes
Cardiovascular: Regular Rhythm
Respiratory: Clear (Diminished breath sounds and prolonged expiratory time), Wheeze (Forced expiratory), Crackles (n), Rhonchi, Non-Labored Respirations, Accessory Resp Muscle Use (n) and Stridor (n)
GI: Soft, Non Distended and Non Tender
Neurology: Awake, Alert and No Motor Deficits
Skin: Warm, Good Color, Cyanosis (n), Jaundice and Rash (n)
Labs/Micro/Reports
Lab Data
05/14/25 11:27
05/14/25 11:27
Microbiology
05/13/25 11:48 Sputum Respiratory Culture - Preliminary
Usual Respiratory Juan
05/13/25 11:48 Sputum Gram Stain - Preliminary
05/13/25 06:30 Sputum Respiratory Culture - Preliminary
Usual Respiratory Juan
05/13/25 06:30 Sputum Gram Stain - Preliminary
05/08/25 19:11 Blood/Venous Blood Culture - Final
No Growth - Final Report
05/08/25 19:11 Blood/Venous Blood Culture - Final
No Growth - Final Report
05/09/25 02:00 Sputum Respiratory Culture - Final
Staph aureus MRSA
05/09/25 02:00 Sputum Gram Stain - Final
[2025-05-14 15:10] VITALS: BP 125/80
[2025-05-14] MEDS: LOVENOX SC (17:14)
[2025-05-14] MEDS: NON-FORMULARY ITEM 1 UNIT INH (17:35)
[2025-05-14] MEDS: STERILE WATER FOR INJECTION IV (20:14)
[2025-05-14] MEDS: MELATONIN 3 MG PO (21:40)
[2025-05-14] MEDS: DESYREL 50 MG PO (21:40)
[2025-05-14] MEDS: LIPITOR 80 MG PO (21:40)
[2025-05-14 21:48] VITALS: BP 151/91
[2025-05-14 22:15] VITALS: BP 151/91
[2025-05-15 03:00] VITALS: BP 112/65
[2025-05-15] MEDS: ROBITUSSIN DM 10 ML PO ×4 (03:45→21:57)
[2025-05-15] MEDS: NON-FORMULARY ITEM 2 UNIT INH (07:16)
[2025-05-15 07:29] LABS: Hematocrit 41.2 % (39.0-52.0); Hemoglobin 12.2 g/dL (13.0-18.0); Mean Corp Hgb Conc. 29.6 g/dL (33.0-37.0); Mean Corpuscular Volume 77.7 fL (80.0-94.0); Platelet Count 390 10^3/uL (130-400); Red Cell Dist. Width 18.9 % (11.5-14.5)
[2025-05-15 07:44] LABS: Venous Blood Gas B.E. 6.5 mmol/L (-4 to +4); Venous Blood Gas O2 Sat % 66.5 %
[2025-05-15 07:45] VITALS: BP 132/86
[2025-05-15 07:51] LABS: Blood Urea Nitrogen 16 mg/dl (9-20); Calcium 8.7 mg/dl (8.4-10.2); Carbon Dioxide 31 mmol/L (22-30); Chloride 104 mmol/L (98-107); Estimated Creatinine Clearance 102 ml/min; Glucose 122 mg/dl (70-99); Potassium 4.5 mmol/L (3.5-5.1); Sodium 136 mmol/L (135-145); eGFR > 60.00
[2025-05-15] MEDS: COZAAR 50 MG PO (08:22)
[2025-05-15] MEDS: DALIRESP 500 MCG PO (08:22)
[2025-05-15] MEDS: ASPIR LOW (ENTERIC COATED) 81 MG PO (08:22)
[2025-05-15] MEDS: CLARITIN 10 MG PO (08:22)
[2025-05-15] MEDS: MUCINEX 1200 MG PO ×2 (08:22→20:08)
[2025-05-15] MEDS: OCEAN, SALINE MIST NASAL ×4 (08:23→21:57)
[2025-05-15] MEDS: SOLU-MEDROL PF 40 MG IV ×2 (08:23→20:09)
[2025-05-15] MEDS: COLACE PO ×3 (08:31→20:15)
[2025-05-15] MEDS: MYLICON 80 MG PO ×2 (10:23→21:58)
[2025-05-15 11:18] VITALS: BP 137/88
--- NOTE | 2025-05-15 11:40 | W.PN.HOSP.TC ---
Today's Communication/Plan
-
Continue IV steroids, inhalers.
Does not tolerate nebulizers or BiPAP. Limited options in end stage COPD patient.
Palliative care is appropriate.
Procal and VBG in the morning.
Assessment / Plan
Assessment / Plan
Physical Exam
NAD
Normocephalic
MMM
Diminished breath sounds throughout. Wheezing
RRR, S1/S2
Soft, NT, ND, BS+
Warm, Dry
AAOx3
Calm
Assessment/Plan
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
Chronic hypoxemia on home oxygen-1 L
Recent hospitalization-COPD exacerbation requiring intubation-on ventilator for 4 days-[facility] in [place]
Pneumonia
End-stage COPD-oxygen dependent, 1 L taken care of at the [facility]-on Breztri (does not like Trelegy), nebulizers make him ill, history of [place] valve placement, palliative care, not ready for hospice
Patient is reportedly alpha 1 antitrypsin 'carrier'-not on replacement therapy, transplant evaluation at the [facility] being contemplated
Wean oxygen as tolerated -- currently on 1 L oxygen
Recently changed dose of Methylprednisolone 40 mg IV every 6 hours to 40 mg IV BID
Antibiotics: completed course of daily Rocephin and Azithromycin, then Rocephin stopped, Azithromycin changed to 500 mg M//
Continue Breztri (he likes this better than Trelegy)
Mucolytic's
Daliresp
Claritin and saline nasal sprays for nasal congestion
Patient declined nebulizers saying that they have made him sick in the past
Repeat sputum culture pending as ordered by pulmonary
Hypertonic saline nebs
[place]
Consider vest therapy, will discuss this with pulmonary
He declined BiPAP
VBG in the morning
Hyperlipidemia
Continue statin
Osteoporosis
Continue bone mineralization supplement
Hypertension
Continue antihypertensive
History of CAD
-Continue Aspirin and statin
Leukopenia
Mild microcytic anemia
Hyperkalemia
-Resolved
Hyperglycemia
-Currently in the acceptable range
Rash-etiology and culprit unclear
DVT Prophylaxis: Lovenox
Anticipated Discharge: 24 - 48 hours
Subjective/Interval History
-
Date of Service: May 15, 2025
Patient was seen and examined. He reported a lot of coughing, but otherwise felt similar compared to the day before.
Objective Data
-
Labs:
Laboratory Results
05/15/25
07:10
WBC 12.9 H
Hgb 12.2 L
Hct 41.2
Plt Count 390
Sodium 136
Potassium 4.5
Chloride 104
Carbon Dioxide 31 H
BUN 16
Creatinine 0.6 L
Glucose 122 H
Calcium 8.7
Vital Signs:
Vital Signs
Temp Pulse Resp BP Pulse Ox
98.3 F 72 16 137/88 97
05/15/25 11:18 05/15/25 11:18 05/15/25 11:18 05/15/25 11:18 05/15/25 11:18
I&O
05/14/25 05/15/25 05/16/25
06:59 06:59 06:59
Intake Total 1860 / 1860 1620 / 1620
Output Total 1000 / 1000 2225 / 2225
Balance 860 / 860 -605 / -605
--- NOTE | 2025-05-15 13:36 | W.PN.PUL3 ---
Today's Communication / Plan
-
- Check procalcitonin in AM
- Declines BIPAP/Nebulizers
- Palliative approach appropriate at this time
- Poor prognosis
Assessment
-
64-year-old former smoking male with end-stage COPD, hyperlipidemia, hypertension, and CAD who states he had the flu shot and subsequently became ill. He was recently admitted to an outside hospital [facility] with respiratory failure intubated for
4 to 5 days was discharged to rehab. He presented with coughing and shortness of breath after his flu shot noted to have significant COPD exacerbation and pulmonary consulted for end-stage COPD with acute exacerbation 05/09/2025.
End-stage COPD with acute exacerbation
Chronic hypoxemia on home oxygen-1 L
Chronic compensated hypercapnia
Recent hospitalization-COPD exacerbation requiring intubation-[facility] ventilator for [facility] days-[facility] [place]
Pneumonia
Leukopenia
Mild microcytic anemia-hemoglobin 12.8, MCV 76
Hyperkalemia
Hyperglycemia
Rash-etiology and culprit unclear
Conditions present prior to admission:
End-stage COPD-oxygen dependent, 1 L taken care of at the [facility]-on Breztri (does not like Trelegy), nebulizers make him ill, history of [place] valve placement, palliative care, not ready for hospice
Reportedly alpha 1 antitrypsin 'carrier'-not on replacement therapy, transplant evaluation at the [facility] being contemplated
CAD
Hypertension
Hyperlipidemia
Plan
Acute decompensation of his end-stage COPD likely related to respiratory infection
Patient recently hospitalized on the ventilator for 4 days at the [facility] [place]
Patient on chronic oxygen 1 L and is status post [place] valve placement in [place] 'helped 3%', follows at the [facility]
Supplemental oxygen as needed-attempt to wean to outpatient levels-currently on 1 L
Mucolytics
Nebulizers-states they cause headaches and make him feel ill. Declines nebulized delivery of medications.
Continue Breztri twice daily-he likes this better than Trelegy
Methylprednisolone 40 mg IV every 6 hours-changed to 40 mg IV BID
Mucinex
Daliresp continues
Claritin for nasal congestion-states nasal sprays do not work for him
Saline nasal sprays.
Saline nebulizers as needed -states he is 'willing to try'
D/c Rocephin, change Azithromycin to 500 mg M//
VBG shows compensated hypercapnia. Nightly BIPAP offered, patient declines
'Patient does not tolerate nebulizer treatments, only wants to use inhalers. Declines BIPAP' unfortunately very limited options. Palliative management is appropriate.
Cultures reviewed
MRSA screen-negative.
Sputum culture-usual juan
Patient responding to current therapy-less short of breath, less oxygen requirements, no temperatures
Repeat sputum cultures usual juan.
Urine streptococcal antigen and Legionella antigen negative
Ceftriaxone and azithromycin-completed course-changed to azithromycin 500 mg [id number]-Lxcjth
Follow radiographically
Follow leukopenia-now normal WBC
Monitor hemoglobin-currently 11.7
Transfuse if needed
Consider iron studies with microcytic anemia
Replace and correct electrolytes
Monitor blood sugar
Insulin supplementation as needed
DVT prophylaxis-on Lovenox
Nutrition
Early mobilization
Outpatient pulmonary follow-up at the [facility]-consider checking alpha 1 antitrypsin and replacement if necessary-reportedly checked and he is a 'carrier' and not on replacement therapy, consider low-dose prednisone, azithromycin thrice weekly, Ohtuvayre
nebulizers, Biologics such as Dupixent, pulmonary rehabilitation, transplantation, etc.
Diagnostic data:
Chest x-ray 05/08/2025-moderate opacification medial right upper lobe, severe emphysematous changes
Subjective Data
-
Date of Service:
Date of Service: May 15, 2025
Chief Complaint: Pulmonary Follow Up and Dyspnea Follow Up
Subjective:
Comfortably lying in bed in no acute distress.
Review of Systems
Genitourinary: Other (No new symptoms reported)
Objective Data
Data Reviewed
Vital Signs / I&O / Oxygen:
Vital Signs
Temp Pulse Resp BP Pulse Ox
98.3 F 72 16 137/88 97
05/15/25 11:18 05/15/25 11:18 05/15/25 11:18 05/15/25 11:18 05/15/25 11:18
Intake and Output
05/14/25 05/15/25 05/16/25
06:59 06:59 06:59
Intake Total 1860 / 1860 1620 / 1620
Output Total 1000 / 1000 2225 / 2225
Balance 860 / 860 -605 / -605
SaO2 97
Nasal Cannula flow liters per 1
minute
Physical Exam
General: Respiratory Distress (n) and Comfortable
HEENT: Normocephalic, Anicteric and Moist Mucous Membranes
Cardiovascular: Regular Rhythm
Respiratory: Clear (Diminished breath sounds and prolonged expiratory time), Wheeze (Forced expiratory), Crackles (n), Rhonchi, Non-Labored Respirations, Accessory Resp Muscle Use (n) and Stridor (n)
GI: Soft, Non Distended and Non Tender
Neurology: Awake, Alert and No Motor Deficits
Skin: Warm, Good Color, Cyanosis (n), Jaundice and Rash (n)
Labs/Micro/Reports
Lab Data
05/15/25 07:10
05/15/25 07:10
Microbiology
05/13/25 06:30 Sputum Respiratory Culture - Final
Usual Respiratory Juan
05/13/25 06:30 Sputum Gram Stain - Final
05/13/25 11:48 Sputum Respiratory Culture - Final
Usual Respiratory Juan
05/13/25 11:48 Sputum Gram Stain - Final
05/08/25 19:11 Blood/Venous Blood Culture - Final
No Growth - Final Report
05/08/25 19:11 Blood/Venous Blood Culture - Final
No Growth - Final Report
[2025-05-15 15:31] VITALS: BP 137/94
[2025-05-15] MEDS: LOVENOX SC (17:15)
[2025-05-15] MEDS: NON-FORMULARY ITEM 1 UNIT INH (19:17)
[2025-05-15] MEDS: STERILE WATER FOR INJECTION IV (20:09)
[2025-05-15] MEDS: MELATONIN 3 MG PO (21:57)
[2025-05-15] MEDS: LIPITOR 80 MG PO (21:58)
[2025-05-15] MEDS: DESYREL 50 MG PO (21:58)
[2025-05-15 23:50] VITALS: BP 109/65
[2025-05-16] MEDS: ROBITUSSIN DM 10 ML PO ×3 (07:47→21:20)
[2025-05-16] MEDS: SOLU-MEDROL PF 40 MG IV (07:47)
[2025-05-16] MEDS: DALIRESP 500 MCG PO (07:47)
[2025-05-16] MEDS: CLARITIN 10 MG PO (07:47)
[2025-05-16] MEDS: MUCINEX 1200 MG PO ×2 (07:47→21:16)
[2025-05-16] MEDS: ASPIR LOW (ENTERIC COATED) 81 MG PO (07:47)
[2025-05-16] MEDS: COZAAR 50 MG PO (07:48)
[2025-05-16 07:55] VITALS: BP 127/81
[2025-05-16] MEDS: MYLICON 80 MG PO ×2 (07:56→21:16)
[2025-05-16] MEDS: ZITHROMAX 500 MG PO (08:01)
[2025-05-16] MEDS: COLACE PO ×2 (08:01→20:05)
[2025-05-16] MEDS: OCEAN, SALINE MIST NASAL ×4 (08:01→21:16)
[2025-05-16 08:03] LABS: Hematocrit 42.5 % (39.0-52.0); Hemoglobin 12.6 g/dL (13.0-18.0); Mean Corp Hgb Conc. 29.6 g/dL (33.0-37.0); Mean Corpuscular Volume 78.3 fL (80.0-94.0); Platelet Count 390 10^3/uL (130-400); Red Cell Dist. Width 18.7 % (11.5-14.5); Venous Blood Gas B.E. 4.0 mmol/L (-4 to +4); Venous Blood Gas O2 Sat % 65.5 %
--- NOTE | 2025-05-16 08:03 | W.PN.HOSP.TC ---
Today's Communication/Plan
-
Reduce dose of IV steroids
See plan
Assessment / Plan
Assessment / Plan
Physical Exam
NAD
Normocephalic
MMM
Diminished breath sounds throughout. Wheezing
RRR, S1/S2
Soft, NT, ND, BS+
Warm, Dry
AAOx3
Calm
Assessment/Plan
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
Chronic hypoxemia on home oxygen-1 L
Recent hospitalization-COPD exacerbation requiring intubation-on ventilator for 4 days-[facility] in [place]
Pneumonia
End-stage COPD-oxygen dependent, 1 L taken care of at the [facility]-on Breztri (does not like Trelegy), nebulizers make him ill, history of [place] valve placement, palliative care, not ready for hospice
Patient is reportedly alpha 1 antitrypsin 'carrier'-not on replacement therapy, transplant evaluation at the [facility] being contemplated
Wean oxygen as tolerated -- currently on 1 L oxygen
Recently changed dose of Methylprednisolone 40 mg IV every 6 hours to 40 mg IV BID --> change to 40 mg IV daily on 05/16/25
Antibiotics: completed course of daily Rocephin and Azithromycin, then Rocephin stopped, Azithromycin changed to 500 mg M//
Continue Breztri (he likes this better than Trelegy)
Mucolytic's
Daliresp
Claritin and saline nasal sprays for nasal congestion
Patient declined nebulizers saying that they have made him sick in the past
Repeat sputum culture pending as ordered by pulmonary
Hypertonic saline nebs
[place]
Consider vest therapy, will discuss this with pulmonary
He declined BiPAP
VBG in the morning
Hyperlipidemia
Continue statin
Osteoporosis
Continue bone mineralization supplement
Hypertension
Continue antihypertensive
History of CAD
-Continue Aspirin and statin
Leukopenia
Mild microcytic anemia
Hyperkalemia
-Resolved
Hyperglycemia
-Currently in the acceptable range
Rash-etiology and culprit unclear
DVT Prophylaxis: Lovenox
Anticipated Discharge: 24 - 48 hours
Subjective/Interval History
-
Date of Service: May 16, 2025
Patient was seen and examined. He denied any new symptoms or complaints.
Objective Data
-
Labs:
Laboratory Results
05/16/25
07:41
WBC Pending
Hgb Pending
Hct Pending
Plt Count Pending
Sodium Pending
Potassium Pending
Chloride Pending
Carbon Dioxide Pending
BUN Pending
Creatinine Pending
Glucose Pending
Calcium Pending
Vital Signs:
Vital Signs
Temp Pulse Resp BP Pulse Ox
98.7 F 75 16 127/81 98
05/16/25 07:55 05/16/25 07:55 05/16/25 07:55 05/16/25 07:55 05/16/25 07:55
I&O
05/15/25 05/16/25 05/17/25
06:59 06:59 06:59
Intake Total 1620 / 1620 1440 / 1440
Output Total 2225 / 2225 1999
Balance -605 / -605 -560 / -560
[2025-05-16] MEDS: NON-FORMULARY ITEM 2 UNIT INH ×2 (08:24→18:10)
[2025-05-16 08:31] LABS: Procalcitonin < 0.05 ng/ml (0.0-0.25)
[2025-05-16 08:35] LABS: Blood Urea Nitrogen 16 mg/dl (9-20); Calcium 8.6 mg/dl (8.4-10.2); Carbon Dioxide 30 mmol/L (22-30); Chloride 103 mmol/L (98-107); Estimated Creatinine Clearance 87 ml/min; Glucose 111 mg/dl (70-99); Potassium 4.6 mmol/L (3.5-5.1); Sodium 136 mmol/L (135-145); eGFR > 60.00
--- NOTE | 2025-05-16 09:23 | W.PN.PUL3 ---
Today's Communication / Plan
-
Not improving, remains on 1L which is baseline, can likely wean to off
Sputum negative, PCT negative, continue off abx
He is on max therapy for COPD, will wean IV steroids as I am not sure what benefit this is providing
Prognosis chcf poor
Can consider pall care discussions if not improving
Assessment
-
64-year-old former smoking male with end-stage COPD, hyperlipidemia, hypertension, and CAD who states he had the flu shot and subsequently became ill. He was recently admitted to an outside hospital [facility] with respiratory failure intubated for
4 to 5 days was discharged to rehab. He presented with coughing and shortness of breath after his flu shot noted to have significant COPD exacerbation and pulmonary consulted for end-stage COPD with acute exacerbation 05/09/2025.
End-stage COPD with acute exacerbation
Chronic hypoxemia on home oxygen-1 L
Chronic compensated hypercapnia
Recent hospitalization-COPD exacerbation requiring intubation-on ventilator for 4 days-[facility] [place]
Pneumonia
Leukopenia
Mild microcytic anemia-hemoglobin 12.8, MCV 76
Hyperkalemia
Hyperglycemia
Rash-etiology and culprit unclear
Conditions present prior to admission:
End-stage COPD-oxygen dependent, [facility] nebulizers make him ill, history of [place] valve placement, palliative care, not ready for hospice
Reportedly alpha 1 antitrypsin 'carrier'-not on replacement therapy, transplant evaluation at the [facility] being contemplated
CAD
Hypertension
Hyperlipidemia
Plan
Acute decompensation of his end-stage COPD likely related to respiratory infection
Patient recently hospitalized on the ventilator for 4 days at the [facility] [place]
Patient on chronic oxygen 1 L and is status post [place] valve placement in [place] 'helped 3%', follows at the [facility]
Supplemental oxygen as needed-attempt to wean to outpatient levels-currently on 1 L
Mucolytics
Nebulizers-states they cause headaches and make him feel ill. Declines nebulized delivery of medications.
Continue Breztri twice daily-he likes this better than Trelegy
Methylprednisolone 40 mg IV every 6 hours-changed to 40 mg IV BID--transitioned to daily
Mucinex
Daliresp continues
Claritin for nasal congestion-states nasal sprays do not work for him
Saline nasal sprays.
Saline nebulizers as needed -states he is 'willing to try'
D/c Rocephin, change Azithromycin to 500 mg M//
VBG shows compensated hypercapnia. Nightly BIPAP offered, patient declines
'Patient does not tolerate nebulizer treatments, only wants to use inhalers. Declines BIPAP'
Unfortunately very limited options. Palliative management is appropriate.
Cultures reviewed
MRSA screen-negative.
Sputum culture-usual juan
PCT negative
Patient responding to current therapy-less short of breath, less oxygen requirements, no temperatures
Repeat sputum cultures usual juan.
Urine streptococcal antigen and Legionella antigen negative
Ceftriaxone and azithromycin-completed course-changed to azithromycin 500 mg [id number]-Vpizmweir-Zeqsas
Follow radiographically
Follow leukopenia-now normal WBC
Monitor hemoglobin-currently 11.7
Transfuse if needed
Consider iron studies with microcytic anemia
Replace and correct electrolytes
Monitor blood sugar
Insulin supplementation as needed
DVT prophylaxis-on Lovenox
Nutrition
Early mobilization
Outpatient pulmonary follow-up at the [facility]-consider checking alpha 1 antitrypsin and replacement if necessary-reportedly checked and he is a 'carrier' and not on replacement therapy, consider low-dose prednisone, azithromycin thrice weekly, Ohtuvayre
nebulizers, Biologics such as Dupixent, pulmonary rehabilitation, transplantation, etc.
Diagnostic data:
CXR 05/12/25- Bullous changes, especially in the right lung. Medial right upper lung opacity without significant change at least in part could represent pneumonia.
Chest x-ray 05/08/2025-moderate opacification medial right upper lobe, severe emphysematous changes
Total time spent on this consultation/encounter __51__ minutes which includes review of history, physical exam, medications, laboratory data, personal review of imaging, extensive review of outpatient records, discussion with care team and
respiratory therapy.
Subjective Data
-
Date of Service:
Date of Service: May 16, 2025
Chief Complaint: Pulmonary Follow Up and Dyspnea Follow Up
Subjective:
Appears comfortable, but coughing occasionally
Having difficulty bringing up mucus
Does not feel improved
Objective Data
Data Reviewed
Vital Signs / I&O / Oxygen:
Vital Signs
Temp Pulse Resp BP Pulse Ox
98.7 F 75 16 127/81 98
05/16/25 07:55 05/16/25 07:55 05/16/25 07:55 05/16/25 07:55 05/16/25 07:55
Intake and Output
05/15/25 05/16/25 05/17/25
06:59 06:59 06:59
Intake Total 1620 / 1620 1440 / 1440
Output Total 2225 / 2225 1999 / 1999
Balance -605 / -605 -560 / -560
SaO2 98
Nasal Cannula flow liters per 1
minute
Physical Exam
General: Respiratory Distress (n) and Comfortable
HEENT: Normocephalic, Anicteric and Moist Mucous Membranes
Cardiovascular: Regular Rhythm
Respiratory: Clear (Diminished breath sounds and prolonged expiratory time), Wheeze (Forced expiratory), Crackles (n), Rhonchi, Non-Labored Respirations, Accessory Resp Muscle Use (n) and Stridor (n)
GI: Soft, Non Distended and Non Tender
Neurology: Awake, Alert and No Motor Deficits
Skin: Warm, Good Color, Cyanosis (n), Jaundice and Rash (n)
Labs/Micro/Reports
Lab Data
05/16/25 07:41
05/16/25 07:41
Microbiology
05/13/25 06:30 Sputum Respiratory Culture - Final
Usual Respiratory Juan
05/13/25 06:30 Sputum Gram Stain - Final
05/13/25 11:48 Sputum Respiratory Culture - Final
Usual Respiratory Juan
05/13/25 11:48 Sputum Gram Stain - Final
05/08/25 19:11 Blood/Venous Blood Culture - Final
No Growth - Final Report
05/08/25 19:11 Blood/Venous Blood Culture - Final
No Growth - Final Report
--- NOTE | 2025-05-16 11:52 | CM ---
Reviewed the chart notes. CM continues to be available to patient/family and is monitoring medical plan for needs at discharge.
Plan: Discharge back to [facility] when medically stable.
Call report to: [phone]
Fax report to: [phone]
[2025-05-16 15:45] VITALS: BP 134/81
[2025-05-16] MEDS: TYLENOL 650 MG PO (16:24)
[2025-05-16] MEDS: LOVENOX SC (18:18)
[2025-05-16] MEDS: STERILE WATER FOR INJECTION IV (20:04)
[2025-05-16] MEDS: LIPITOR 80 MG PO (21:16)
[2025-05-16] MEDS: DESYREL 50 MG PO (21:16)
[2025-05-16] MEDS: MELATONIN 3 MG PO (22:18)
[2025-05-16 23:27] VITALS: BP 128/87
[2025-05-17] MEDS: ROBITUSSIN DM 10 ML PO ×3 (06:05→22:01)
[2025-05-17 07:27] VITALS: BP 132/80
[2025-05-17] MEDS: NON-FORMULARY ITEM 1 UNIT INH (08:09)
[2025-05-17] MEDS: CLARITIN 10 MG PO (08:57)
[2025-05-17] MEDS: DALIRESP 500 MCG PO (08:58)
[2025-05-17] MEDS: ASPIR LOW (ENTERIC COATED) 81 MG PO (08:58)
[2025-05-17] MEDS: COZAAR 50 MG PO (08:58)
[2025-05-17] MEDS: MUCINEX 1200 MG PO ×2 (08:58→20:18)
[2025-05-17] MEDS: COLACE PO ×2 (08:58→20:17)
[2025-05-17] MEDS: SOLU-MEDROL PF 40 MG IV (08:59)
[2025-05-17] MEDS: OCEAN, SALINE MIST NASAL ×4 (08:59→21:57)
[2025-05-17] MEDS: MYLICON 80 MG PO ×2 (09:11→22:01)
--- NOTE | 2025-05-17 09:24 | W.PN.PUL3 ---
Today's Communication / Plan
-
Stable on RA, satting 98%--he feels he could be ready to go home
Transition IV steroids to PO taper today
Encourage continued OOB/IS, PT
Recommend he see his pulmonary doc at [facility] in follow up post discharge
Hopeful discharge planning per team
Assessment
-
64-year-old former smoking male with end-stage COPD, hyperlipidemia, hypertension, and CAD who states he had the flu shot and subsequently became ill. He was recently admitted to an outside hospital at the [facility] with respiratory failure intubated for
4 to 5 days was discharged to rehab. He presented with coughing and shortness of breath after his flu shot noted to have significant COPD exacerbation and pulmonary consulted for end-stage COPD with acute exacerbation 05/09/2025.
End-stage COPD with acute exacerbation
Chronic hypoxemia on home oxygen-1 L
Chronic compensated hypercapnia
Recent hospitalization-COPD exacerbation requiring intubation-on ventilator for 4 days-[facility] in [place]
Pneumonia
Leukopenia
Mild microcytic anemia-hemoglobin 12.8, MCV 76
Hyperkalemia
Hyperglycemia
Rash-etiology and culprit unclear
Conditions present prior to admission:
End-stage COPD-oxygen dependent, 1 L taken care of at the [facility]-on Bretri (does not like Trelegy), nebulizers make him ill, history of [place] valve placement, palliative care, not ready for hospice
Reportedly alpha 1 antitrypsin 'carrier'-not on replacement therapy, transplant evaluation at the [facility] being contemplated
CAD
Hypertension
Hyperlipidemia
Plan
Acute decompensation of his end-stage COPD likely related to respiratory infection
Patient recently hospitalized on the ventilator for 4 days at the [facility] in [place]
Patient has chronic oxygen 1 L and is status post [place] valve placement in [place] 'helped 3%', follows at the [facility]
He is currently 98% on RA
Mucolytics
Nebulizers-states they cause headaches and make him feel ill. Declines nebulized delivery of medications.
Continue Breztri twice daily-he likes this better than Trelegy
Methylprednisolone 40 mg IV every 6 hours-changed to 40 mg IV BID--transitioned to daily
Mucinex
Daliresp continues
Claritin for nasal congestion-states nasal sprays do not work for him
Saline nasal sprays.
Saline nebulizers as needed -states he is 'willing to try'
D/c Rocephin, change Azithromycin to 500 mg //
VBG shows compensated hypercapnia. Nightly BIPAP offered, patient declines
'Patient does not tolerate nebulizer treatments, only wants to use inhalers. Declines BIPAP'
Unfortunately very limited options. Palliative management is appropriate.
Cultures reviewed
MRSA screen-negative.
Sputum culture-usual juan
PCT negative
Patient responding to current therapy-less short of breath, less oxygen requirements, no temperatures
Repeat sputum cultures usual juan.
Urine streptococcal antigen and Legionella antigen negative
Ceftriaxone and azithromycin-completed course-changed to azithromycin 500 mg Y[place]-Xmmxcneyy-Zpxoyj
Follow radiographically
Follow leukopenia-now normal WBC
Monitor hemoglobin-currently 11.7
Transfuse if needed
DVT prophylaxis-on Lovenox
Nutrition
Early mobilization
Outpatient pulmonary follow-up at the [facility]-consider checking alpha 1 antitrypsin and replacement if necessary-reportedly checked and he is a 'carrier' and not on replacement therapy, consider low-dose prednisone, azithromycin thrice weekly, [place]ayre
nebulizers, Biologics such as Dupixent, pulmonary rehabilitation, transplantation, etc.
Diagnostic data:
CXR 05/12/25- Bullous changes, especially in the right lung. Medial right upper lung opacity without significant change at least in part could represent pneumonia.
Chest x-ray 05/08/2025-moderate opacification medial right upper lobe, severe emphysematous changes
Total time spent on this consultation/encounter __45__ minutes which includes review of history, physical exam, medications, laboratory data, personal review of imaging, extensive review of outpatient records, discussion with care team and
respiratory therapy.
Subjective Data
-
Date of Service:
Date of Service: May 17, 2025
Chief Complaint: Pulmonary Follow Up and Dyspnea Follow Up
Subjective:
No new complaints, feels more stable today
Stable on RA
Objective Data
Data Reviewed
Vital Signs / I&O / Oxygen:
Vital Signs
Temp Pulse Resp BP Pulse Ox
98.3 F 76 18 132/80 97
05/17/25 07:27 05/17/25 08:58 05/17/25 07:27 05/17/25 08:58 05/17/25 07:27
Intake and Output
05/16/25 05/17/25 05/18/25
06:59 06:59 06:59
Intake Total 1440 / 1440 1380 / 1380
Output Total 2000 / 2000 1500 / 1500
Balance -560 / -560 -120 / -120
SaO2 97
Nasal Cannula flow liters per 1
minute
Physical Exam
General: Respiratory Distress (n) and Comfortable
HEENT: Normocephalic, Anicteric and Moist Mucous Membranes
Cardiovascular: Regular Rhythm
Respiratory: Clear (Diminished breath sounds and prolonged expiratory time), Wheeze (Forced expiratory), Crackles (n), Rhonchi, Non-Labored Respirations, Accessory Resp Muscle Use (n) and Stridor (n)
GI: Soft, Non Distended and Non Tender
Neurology: Awake, Alert and No Motor Deficits
Skin: Warm, Good Color, Cyanosis (n), Jaundice and Rash (n)
Labs/Micro/Reports
Microbiology
05/13/25 06:30 Sputum Respiratory Culture - Final
Usual Respiratory Juan
05/13/25 06:30 Sputum Gram Stain - Final
05/13/25 11:48 Sputum Respiratory Culture - Final
Usual Respiratory Juan
05/13/25 11:48 Sputum Gram Stain - Final
[2025-05-17 11:47] LABS: Hematocrit 47.2 % (39.0-52.0); Hemoglobin 14.2 g/dL (13.0-18.0); Mean Corp Hgb Conc. 30.1 g/dL (33.0-37.0); Mean Corpuscular Volume 78.4 fL (80.0-94.0); Platelet Count 404 10^3/uL (130-400); Red Cell Dist. Width 19.6 % (11.5-14.5)
[2025-05-17 12:11] LABS: Blood Urea Nitrogen 22 mg/dl (9-20); Calcium 9.8 mg/dl (8.4-10.2); Carbon Dioxide 33 mmol/L (22-30); Chloride 102 mmol/L (98-107); Estimated Creatinine Clearance 87 ml/min; Glucose 95 mg/dl (70-99); Potassium 4.6 mmol/L (3.5-5.1); Sodium 136 mmol/L (135-145); eGFR > 60.00
[2025-05-17 15:31] VITALS: BP 118/75
--- NOTE | 2025-05-17 15:59 | CM ---
Addendum entered by Jossie Kirkpatrick RN 05/17/25 16:08:
CM spoke with Loraine [facility] Liaison and inquired if van available to transport patient today. Per Loraine, gone for the day, but she was under impression that the ambulance company would bill [facility] for cost. CM asked [facility]
if they would bill w/c van cost to [facility], they will not. CM spoke with Loraine and updated on the above. Loraine said van will be able to pick patient up tomorrow mid day as the van will be dropping people off here at the hospital.
Attending, RN and patient updated.
Original Note:
Reviewed the chart notes and spoke with the patient at the bedside. IMM reviewed. CM continues to be available to patient/family and is monitoring medical plan for needs at discharge.
Plan: Discharge back to [facility] when medically stable.
Call report to: [phone]
Fax report to: [phone]
[2025-05-17] MEDS: LOVENOX SC (17:18)
--- NOTE | 2025-05-17 17:26 | W.PN.HOSP.TC ---
Today's Communication/Plan
-
Now on oral steroids
Per case management, patient can be discharged tomorrow as that is when transport will be available
Assessment / Plan
Assessment / Plan
Physical Exam
NAD
Normocephalic
MMM
Diminished breath sounds throughout. Wheezing
RRR, S1/S2
Soft, NT, ND, BS+
Warm, Dry
AAOx3
Calm
Assessment/Plan
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
Chronic hypoxemia on home oxygen-1 L
Recent hospitalization-COPD exacerbation requiring intubation-on ventilator for 4 days-[facility] in [place]
Pneumonia
End-stage COPD-oxygen dependent, 1 L taken care of at the [facility]-on Breztri (does not like Trelegy), nebulizers make him ill, history of [place] valve placement, palliative care, not ready for hospice
Patient is reportedly alpha 1 antitrypsin 'carrier'-not on replacement therapy, transplant evaluation at the [facility] being contemplated
Wean oxygen as tolerated -- currently on 1 L oxygen
Recently changed dose of Methylprednisolone 40 mg IV every 6 hours to 40 mg IV BID --> changed to 40 mg IV daily on 05/16/25 --> changed to Prednisone on 05/17/25
Antibiotics: completed course of daily Rocephin and Azithromycin, then Rocephin stopped, Azithromycin changed to 500 mg M//
Continue Breztri (he likes this better than Trelegy)
Mucolytic's
Daliresp
Claritin and saline nasal sprays for nasal congestion
Patient declined nebulizers saying that they have made him sick in the past
Repeat sputum culture pending as ordered by pulmonary
Hypertonic saline nebs
[place]
Consider vest therapy, will discuss this with pulmonary
He declined BiPAP
VBG in the morning
Hyperlipidemia
Continue statin
Osteoporosis
Continue bone mineralization supplement
Hypertension
Continue antihypertensive
History of CAD
-Continue Aspirin and statin
Leukopenia
Mild microcytic anemia
Hyperkalemia
-Resolved
Hyperglycemia
-Currently in the acceptable range
Rash-etiology and culprit unclear
DVT Prophylaxis: Lovenox
Anticipated Discharge: Within 24 hours
Subjective/Interval History
-
Date of Service: May 17, 2025
Patient was seen and examined. He reported cough, no other new symptoms or complaints.
Objective Data
-
Labs:
Laboratory Results
05/17/25
11:18
WBC 17.1 H
Hgb 14.2
Hct 47.2
Plt Count 404 H
Sodium 136
Potassium 4.6
Chloride 102
Carbon Dioxide 33 H
BUN 22 H
Creatinine 0.7
Glucose 95
Calcium 9.8
Vital Signs:
Vital Signs
Temp Pulse Resp BP Pulse Ox
99.2 F 82 18 118/75 96
05/17/25 15:31 05/17/25 15:31 05/17/25 15:31 05/17/25 15:31 05/17/25 15:31
I&O
05/16/25 05/17/25 05/18/25
06:59 06:59 06:59
Intake Total 1440 / 1440 1380 / 1380
Output Total 1999 / 1999 1500 / 1500
Balance -560 / -560 -120 / -120
[2025-05-17] MEDS: NON-FORMULARY ITEM 2 UNIT INH (19:56)
[2025-05-17] MEDS: STERILE WATER FOR INJECTION IV (20:22)
[2025-05-17] MEDS: DESYREL 50 MG PO (21:57)
[2025-05-17] MEDS: LIPITOR 80 MG PO (21:57)
[2025-05-17 23:13] VITALS: BP 109/80
--- NOTE | 2025-05-18 06:28 | DOWNTIME ---
There was a [employer] Client Clinical Trial Assistant Downtime on 05/18/2025 from 0100 to 05/18/2025 at 0215. Downtime documentation of patient's care, including medication administrations, has been reconciled in the electronic record per guidelines. Refer to the
patient's paper chart under the miscellaneous tab to see printed paper medication records and downtime forms.
[2025-05-18] MEDS: NON-FORMULARY ITEM 2 UNIT INH (07:25)
--- NOTE | 2025-05-18 08:14 | W.PN.HOSP.TC ---
Today's Communication/Plan
-
Assessment/Plan
Assessment / Plan
Assessment / Plan
Physical Exam
NAD
Normocephalic
MMM
Diminished breath sounds throughout.
RRR, S1/S2
Soft, NT, ND, BS+
Warm, Dry
AAOx3
Calm
Assessment/Plan
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
Chronic hypoxemia on home oxygen-1 L
Recent hospitalization-COPD exacerbation requiring intubation-on ventilator for 4 days-[facility] in [place]
Pneumonia
End-stage COPD-oxygen dependent, 1 L taken care of at the [facility]-on Breztri (does not like Trelegy), nebulizers make him ill, history of [place] valve placement, palliative care, not ready for hospice
Patient is reportedly alpha 1 antitrypsin 'carrier'-not on replacement therapy, transplant evaluation at the [facility] being contemplated
Wean oxygen as tolerated -- currently on 1 L oxygen
Recently changed dose of Methylprednisolone 40 mg IV every 6 hours to 40 mg IV BID --> changed to 40 mg IV daily on 05/16/25 --> changed to Prednisone on 05/17/25 -- continue taper at discharge as per pulmonary
Antibiotics: completed course of daily Rocephin and Azithromycin, then Rocephin stopped, Azithromycin changed to 500 mg M/W/
Continue Breztri twice daily (he likes this better than Trelegy)
Mucinex
Daliresp
Claritin for nasal congestion
Saline Nasal Sprays
Patient declined nebulizers saying that they have made him sick in the past
Repeat sputum culture pending as ordered by pulmonary
Hypertonic saline nebs
[place]
Consider vest therapy, will discuss this with pulmonary
He declined BiPAP
VBG in the morning
Hyperlipidemia
Continue statin
Osteoporosis
Continue bone mineralization supplement
Hypertension
Continue antihypertensive
History of CAD
-Continue Aspirin and statin
Leukopenia
Mild microcytic anemia
Hyperkalemia
-Resolved
Hyperglycemia
-Currently in the acceptable range
Rash-etiology and culprit unclear
DVT Prophylaxis: Lovenox
More than 30 minutes spent in discharge including
Final examination of the patient
Summarizing hospital stay
Instructions for continuing care to all relevant caregivers
Preparation of discharge records, prescriptions, and referral forms
Total time spent (in minutes): 36
Anticipated Discharge: Today
Subjective/Interval History
-
Date of Service: May 18, 2025
Patient was seen and examined. He denied any new symptoms or complaints. Still coughing.
Objective Data
-
Vital Signs:
Vital Signs
Temp Pulse Resp BP Pulse Ox
98.3 F 63 18 109/80 93
05/17/25 23:13 05/18/25 07:26 05/18/25 07:26 05/17/25 23:13 05/18/25 07:26
I&O
05/17/25 05/18/25 05/19/25
06:59 06:59 06:59
Intake Total 1380 / 1380 960 / 960
Output Total 1500 / 1500 1450 / 1450
Balance -120 / -120 -490 / -490
[2025-05-18 08:18] VITALS: BP 124/79
[2025-05-18] MEDS: DALIRESP 500 MCG PO (08:58)
[2025-05-18] MEDS: COZAAR 50 MG PO (08:58)
[2025-05-18] MEDS: CLARITIN 10 MG PO (08:58)
[2025-05-18] MEDS: MUCINEX 1200 MG PO (08:58)
[2025-05-18] MEDS: ROBITUSSIN DM 10 ML PO (08:58)
[2025-05-18] MEDS: ASPIR LOW (ENTERIC COATED) 81 MG PO (08:58)
[2025-05-18] MEDS: DELTASONE 40 MG PO (08:58)
[2025-05-18] MEDS: COLACE PO (08:59)
[2025-05-18] MEDS: OCEAN, SALINE MIST NASAL (08:59)
[2025-05-18] MEDS: ZITHROMAX 500 MG PO (09:00)
[2025-05-18] MEDS: TYLENOL 650 MG PO (10:54)
[2025-05-18] MEDS: MYLICON 80 MG PO (10:54)
[2025-05-18 11:31] VITALS: BP 132/83
--- NOTE | 2025-05-18 12:15 | W.DCSUMMARY ---
Discharge Summary
Discharge Data
Date of Admission: 05/08/25
Date of Discharge: 05/18/25
Total time spent discharging patient (in min): 36
-
Pending Results: No
Hospital Course
64 year-old male with past medical history significant for remote CO, hyperlipidemia, hypertension, COPD with advanced disease status post bronchial valve placement on right segmental branches who was recently admitted at an outside hospital with
respiratory failure and intubated for several days, discharged to rehab facility on March 10, 2025, this admission presented from rehab with cough and shortness of breath. Patient was found to have fever and tachycardia. Patient was admitted and
treated for Pneumonia and COPD exacerbation. Patient was placed on intravenous antibiotics and intravenous steroids. Pulmonary was consulted. Patient said that he could not tolerate nebulizers (due to side effects) and he said he cannot tolerate
BiPAP. Patient's condition improved and he was stable for discharge.
Discharge Plan
-
Patient Disposition: Home (Routine Discharge)
Discharge Diagnosis/Procedures: Medial right upper lung opacity without significant change at least in part could represent pneumonia on chest x-ray (as per radiologist's report)
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
Chronic hypoxemia on home oxygen-1 liter
Recent hospitalization-COPD exacerbation requiring intubation-on ventilator for 4 days-[facility] in [place]
Pneumonia
Hyperlipidemia
Osteoporosis
Hypertension
History of Coronary Artery Disease
Leukopenia
Mild microcytic anemia
Hyperkalemia
Hyperglycemia
Rash-etiology unclear
Condition: Fair
Diet: As tolerated, Low Fat and Low Cholesterol
Activity: As tolerated
Other Services: PT
Activity Restrictions/Additional Instructions:
Patient needs very close follow-up with pulmonary and for refills for his pulmonary medications
Referrals:
Dimitri Randolph MD [Family Provider] - in less than 1 week
Referral Note: Hospitalization Follow-Up
Prescriptions:
New
loratadine 10 mg Tablet
10 mg PO DAILY Qty: 30 1RF
prednisone 10 mg tablet
See Rx Instructions .ROUTE .COMPLEX Qty: 30 0RF
Rx Instructions:
40 mg daily x2 days; 30 mg daily x3 days; 20 mg daily x3 days; 10 mg daily x3 days
guaifenesin 600 mg Tablet Extended Release 12hr
1,200 mg PO Q12 Qty: 60 0RF
simethicone 80 mg Tablet,Chewable
80 mg PO TIDPRN PRN (Reason: gas pain) Qty: 20 0RF
[place] Nasal 0.65 % Aerosol,[place]
2 spray intranasal QID Qty: 44 0RF
dextromethorphan-guaifenesin 10-100 mg/5 mL Syrup
10 ml PO Q4HPRN PRN (Reason: cough) Qty: 237 0RF
azithromycin 250 mg Tablet
500 mg PO MoWeFr@0800 Qty: 18 3RF
Continued
losartan 50 mg Tablet
50 mg PO DAILY
atorvastatin 80 mg Tablet
80 mg PO HS
acetaminophen [Tylenol] 325 mg Tablet
650 mg PO Q4HPRN PRN (Reason: mild pain)
trazodone 50 mg Tablet
50 mg PO HS
melatonin 3 mg Tablet
3 mg PO HS
alendronate 35 mg Tablet
35 mg PO MO
aspirin 81 mg Tablet
81 mg PO DAILY
fluticasone propionate 50 mcg/actuation [place],Suspension
2 spray INTRANASAL QPM
cholecalciferol (vitamin D3) [Vitamin D3] 25 mcg (1,000 unit) Tablet
25 mcg PO DAILY
roflumilast 500 mcg Tablet
500 mcg PO DAILY
Breztri Aerosphere 160-9-4.8 mcg/actuation Hfa Aerosol Inhaler
2 inh INHALATION R BID
sennosides [senna] 8.6 mg Tablet
8.6 mg PO BIDPRN PRN (Reason: constipation)
albuterol sulfate 2.5 mg /3 mL (0.083 %) Solution For Nebulization
2.5 mg INHALATION R Q4HPRN PRN (Reason: sob)
polyethylene glycol 3350 [Miralax] 17 gram Powder In Packet
17 g PO P12BAHA PRN (Reason: constipation)
magnesium hydroxide [Milk of Magnesia] 400 mg/5 mL Suspension
2,400 mg PO DAILYPRN PRN (Reason: if no bm by 3rd day)
calcium carbonate 500 mg calcium (1,250 mg) Tablet
500 mg PO DAILY
bisacodyl [Dulcolax (bisacodyl)] 10 mg Suppository
10 mg IN DAILYPRN PRN (Reason: if no bm aftr mom)
Fleet Enema 19-7 gram/118 mL Enema
118 ml IN DAILYPRN PRN (Reason: if no bm aftr dulcolax)
albuterol sulfate 90 mcg/actuation Hfa Aerosol Inhaler
2 inh INHALATION R Q2HPRN PRN (Reason: sob)
sodium chloride 0.65 % Aerosol,[place]
1 spray INTRANASAL Q4HPRN PRN (Reason: dryness)
Discontinued
cetirizine [Zyrtec] 10 mg Tablet
10 mg PO DAILY
ondansetron HCl [Zofran] 4 mg Tablet
4 mg PO Q8HPRN PRN (Reason: nausea)
Discharge Orders:
Discharge Patient (As Directed); Ordered 05/18/25
Ordered By: Dwight Huff
Discharge Date and Time
Discharge Date/Time: 05/18/25 13:07
Print Language: MONGOLIAN
== END 2025-05-18 13:07 | disposition home or self-care (01) | DRG 191 ==
LOC: 2 NORTH 22:27
PROVIDERS: Internal Medicine; Nurse Practitioner Family; Registered Nurse; ADMITTING PHYSICIAN Internal Medicine; ATTENDING PHYSICIAN Hospitalist; EMERGENCY PHYSICIAN Emergency Medicine; FAMILY PHYSICIAN Internal Medicine; OTHER PHYSICIAN Internal Medicine Critical Care Medicine
DX: J44.1 Chronic obstructive pulmonary disease with (acute) exacerbation (principal); J96.11 Chronic respiratory failure with hypoxia; R64 Cachexia; Z68.1 Body mass index [BMI] 19.9 or less, adult; J44.0 Chronic obstructive pulmonary disease with (acute) lower respiratory infection; Z99.81 Dependence on supplemental oxygen; I25.10 Atherosclerotic heart disease of native coronary artery without angina pectoris; D72.819 Decreased white blood cell count, unspecified; D50.9 Iron deficiency anemia, unspecified; E87.5 Hyperkalemia; R73.9 Hyperglycemia, unspecified; I10 Essential (primary) hypertension; Z87.891 Personal history of nicotine dependence; Z79.82 Long term (current) use of aspirin; E78.00 Pure hypercholesterolemia, unspecified; I25.2 Old myocardial infarction; J43.9 Emphysema, unspecified; Z11.52 Encounter for screening for COVID-19
CPT/HCPCS: 71045; 71046; 80048; 80053; 82805; 83605; 83735; 84145; 85025; 85027; 85610; 87040; 87070; 87147; 87186; 87205; 87449; 87502; 87811; 87899; 93005; 94640; 96374; 96375; 97163; 97167; 97530; 97535; 99285